=== PATIENT | female | born 1950 | race Caucasian/White ===

== ENCOUNTER → 2024-04-13 10:45 | Outpatient (CLI) | payer MEDICARE, SELFPAY ==
--- NOTE | 2024-04-13 10:50 | DI.CT.S_ITS ---
PROCEDURE: CT LUMBAR SPINE WO CON INDICATIONS: SPINAL STENOSIS,LUMBAR REGION TECHNIQUE: Noncontrast 0.8 mm thick sections acquired from the T12 level to the sacrum. Sagittal and coronal reformats were constructed. For radiation dose reduction, the following was used: automated exposure control. COMPARISON: [facility], MR, MR LUMBAR SPINE WITH/WITHOUT CONTRAST, 11/03/2023, 14:06. [facility], CR, XR LUMBAR SPINE 2 OR 3 VIEWS, 01/05/2024, 14:12. [facility], MR, MR LUMBAR SPINE WITHOUT CONTRAST, 10/29/2020, 19:31. [facility] Outside [facility], MR, MR LUMBAR SPINE WITHOUT CONTRAST, 10/01/2021, 13:08. (Images only, no reports with the a prior outside studies.) FINDINGS: Image quality: Excellent. Bones: No acute vertebral body compression fractures. No suspicious lytic or blastic bony lesions. No pars defects. Mild to moderate dextroconvex scoliotic curvature is seen. Portions of the posterior elements can be seen inferiorly. T12-L1: No significant abnormality is seen. L1-L2: The disc height is well preserved. Moderate disc bulge is seen, which is eccentric to the right. Moderate facet joint hypertrophy is seen. Moderate bilateral neural foraminal narrowing can be seen, right worse than left. Mild central canal narrowing is seen. L2-L3: Mild to moderate loss of disc height is seen. Moderate disc bulge is seen, with a central disc protrusion. Moderate bilateral neural foraminal narrowing is seen. Moderate central canal narrowing is seen. L3-L4: At least moderate loss of disc height is seen on the left. Endplate irregularity and sclerosis can be seen. Vacuum disc phenomenon is seen at this level. Moderate disc bulge is seen, with a central disc protrusion. Mild facet joint hypertrophy is seen. There is moderate right-sided and at least moderate left-sided neural foraminal narrowing. No significant central canal narrowing is seen. L4-L5: At least moderate loss of disc height is seen. Vacuum disc phenomenon is seen at this level. Moderate generalized disc bulge is seen. There is a central disc osteophyte protrusion. Posteriorly projected endplate osteophytes are seen. Moderate facet joint hypertrophy is seen. Moderate to severe bilateral neural foraminal narrowing is seen, right worse than left. No significant central canal narrowing is seen. L5-S1: There is at least moderate loss of disc height seen at this level. Endplate irregularity and sclerosis can be seen. Vacuum disc phenomenon is seen at this level. Posteriorly projected endplate osteophytes are seen. Moderate facet joint hypertrophy is seen. There is at least moderate bilateral neural foraminal narrowing seen. No significant central canal narrowing is seen. Soft tissues: No retroperitoneal masses or hematomas. Visualized aorta is normal in caliber. Colonic diverticulosis is seen, without findings of active diverticulitis. IMPRESSION: Study performed for operative localization. Underlying degenerative changes are seen, which are similar to the recent prior imaging and are worst inferiorly. Yyhu-cu-zzrbwsic dextroconvex lumbar scoliosis. Additional findings: Diverticulosis, without active diverticulitis Dictated by: Dale Baires M.D. on 04/13/2024 at 13:14 Approved by: Dale Baires M.D. on 04/13/2024 at 13:19
== END ==
LOC: CT 10:48
PROVIDERS: Referring Provider Orthopaedic Surgery Orthopaedic Surgery of the Spine; Visit Provider Orthopaedic Surgery Orthopaedic Surgery of the Spine
DX: M48.062 Spinal stenosis, lumbar region with neurogenic claudication (principal); M47.816 Spondylosis without myelopathy or radiculopathy, lumbar region; M47.817 Spondylosis without myelopathy or radiculopathy, lumbosacral region; M41.9 Scoliosis, unspecified; K57.90 Diverticulosis of intestine, part unspecified, without perforation or abscess without bleeding
CPT/HCPCS: 72131

== ENCOUNTER 2024-04-25 09:40 | Inpatient (IN) | payer MEDICARE, SELFPAY ==
[2024-04-19 09:46] VITALS: BMI 39.1
[2024-04-25] VITALS (10 sets, daily range): BP systolic 109–168; BP diastolic 47–88; PULSE 75–101; RESP 9–19; TEMP 36.1–37.2; O2SAT 91–99; BMI 39.1
[2024-04-25] MEDS: LACTATED RINGERS 1,000 ML 42 ML IV ×2 (11:02→13:51)
--- NOTE | 2024-04-25 11:19 | SUR.OPER ---
Prone on spine table, head in foam head support, padded chest and pelvic supports, gel pad at knees, lower legs supported by pillows; nipples, genitalia and toes free of pressure, arms secured on foam padded arm boards at <90 degrees abduction. Tape over blanket at thigh secured to table.
--- NOTE | 2024-04-25 11:20 | PM.PREOP ---
Pre-operative Note Interval Note History & Physical reviewed/Exam performed by Physician: Yes Changes to H&P: No
[2024-04-25] MEDS: CEFAZOLIN 2 GM/100 ML PREMIX 100 ML IV ×3 (11:52→22:14)
[2024-04-25] MEDS: BUPIVACAINE 0.25% (PF) 60 ML, EPINEPHrine 0.15 MG INJ (12:17)
[2024-04-25] MEDS: BUPIVACAINE LIPOSOME 266 MG/20 ML VIAL INJ (12:18)
--- NOTE | 2024-04-25 15:44 | PM.OP.1 ---
Operative Date/Time/Diagnoses Date of procedure: 04/25/24 Time of procedure: 12:15 Pre-op diagnosis: 1. L3-4, L4-5 spinal stenosis with radiculopathy 2. Lumbar scoliosis Post-op diagnosis: same Procedure & Clinicians Procedure: 1. L3-4, L4-5 Postero-lateral and posterior interbody fusion 2. L3-4, L4-5 interbody cage placement. 3. L3-4, L4-5 decompressive laminectomy with bilateral facetecomies 4. L3-4, L4-5 Posterior segmental instrumentation 5. [place] of bone marrow from iliac crest 6. Utilization of microsurgical technique and operating microscope 7. Utilization of robotic assisted navigation Same procedure as scheduled: Yes Indications: Patient has been having chronic back pain and worsening lumbar radiculopathy. Patient was found to have significant lumbar scoliosis foraminal stenosis with correlating symptoms at L3-4 L4-5 level. Patient failed multiple conservative management with worsening pain weakness and numbness in her lower extremity. Patient has been having difficulty performing activity of daily living. After discussing risks benefits of treatment options, patient elected proceed with surgery. Surgeon: Danni Gonzalez Earth Auger Operator: Mabel Liriano Click Yes if Unassisted: No Anesthesia Type: General Operative Notes Closure Type: primary Specimen(s): none sent Prosthetic devices, grafts, tissues, transplants, or devices: Globus CREO MIS screws, Rise cages Applied: catheter Estimated Blood Loss (mL): 100 Blood products transfused: none Procedure in detail: Patient was seen in the preoperative area. Risks and benefits of the surgery was discussed with the patient. Informed consent was obtained from the patient and placed in the chart. Surgical site was marked. Patient was taken to the operative room. General anesthesia was administered. Prophylactic antibiotic was given to the patient less than 30 min before the incision was made. Patient was placed into a prone position on the [place] table. Patient's back was then prepped and draped in the sterile fashion. Time-out was performed at this time. After patient was prepped and draped, patient's PSIS was palpated and marked bilaterally. Small 1 cm incision was made over the PSIS for placement of the reference probes. Two trocar was placed into the PSIS 1 on each side. The reference probe was attached to the trocar of the reference apparatus. At this time the C-arm imaging was used to confirm AP and lateral of L3, L4-L5 vertebrae and merged the C-arm imaging using the [employer] robotic navigation system with the CT of the lumbar spine. After successful merging was completed and confirmed, skin marker was used to christina out the skin incision using the [employer] robotic arm. Bilateral incision was made at this time. Pre templated trajectory was used and guided using the [employer] robotic navigation system for bilateral L3 L4, L5 pedicle screw placement. This was done by using the robotic arm to guide the high-speed bur to make a cortical entry point. Next a drill was placed also using the robotic arm and guided using the navigation system drilling partially through bilateral L3, L4, L5 pedicles. Next L3, L4, L5 pedicle screws it was pre templated and measured was placed onto the power driver service technician and inserted into the pedicles bilaterally. After all 6 screws were placed C-arm imaging was taken of both AP and lateral to confirm the placement. Excellent placement of the screws were confirmed and a matched precisely with the pre planned screw placement using the navigation system. MARs retractor was inserted using Fits.meivation guidence. Globus MARS retractors was placed inside the incision and docked onto the L3, L4 lamina. Using microsurgical technique and operating microscope, a L3, L4 laminectomy and L3-4, L4-5 facetectomy was performed using a Kerrison rongeur. The laminectomy and facetectomy was performed in order to decompress patient's cauda equina as well as the nerve roots exiting at the L3-4, L4-5 level. Patient was found have severe lateral recess and neural foramen stenosis which was fully decompressed after the laminectomy facetectomy. The decompression was significantly more challenging due to the significant white previous laminectomies patient had at both L3-4 L4-5 levels. Significant care was taken to avoid the scar tissue in the midline while proper decompression was performed at both levels. More than 75% of the facets were removed during the process of decompression rendering L3-4, L4-5 level grossly unstable and required a fusion procedure at the same time. The disc space at L3-4, L4-5 was identified, and a total diskectomy was performed at L3-4, L4-5 level. The endplates were decorticated using a rasp and shaver. The total diskectomy and decortication was performed at L3-4, L4-5 level in order to to accomplish a L3-4, L4-5 fusion. The local bone from the laminectomy and facetectomy was saved for local bone grafting. After the total diskectomy and decortication was completed, Viacel bone graft material was combined with local bone that was harvested earlier. At this time, a separate skin is incision was made over the iliac crest on the right. A Jamshidi needle was inserted into the iliac crest through a separate skin incision. 5 cc of bone marrow aspiration was obtained through the separate skin incision using a Jamshidi needle from the iliac crest. The bone marrow aspiration was combined with local bone and the Viacel bone grafting material. The bone grafting material was placed into the L3-4, L4-5 interbody space along with expandable cages. One cage each was inserted into the L3-4 L4-5 interbody space along with bone graft material. The cage was expanded to its maximum height using the torque limiting screwdriver. The disc preparation as well as the cage insertion were also performed under navigation guidance. After the cage was placed, AP and lateral C-arm imaging was taken to confirm placement of the cage and excellent position was confirmed. Globus MARS retractor was inserted and docked onto the L3-4, L4-5 posterolateral gutter on the right side. Using the power drill, posterior-lateral decortication was performed at L3-4, L4-5 level until bleeding cortical bone was identified. The remaining bone grafting material was placed into the L3-4, L4-5 posterior lateral gutter he order to accomplish posterolateral fusion at the L3-4, L4-5 level. At this time the tulips were attached to the L3, L4-L5 pedicle screw shanks. After measuring the length of the rods, they were inserted into the tulips of the pedicle screws and locked in place using locking caps and torque limiting screwdriver bilaterally. Total 6 caps and 2 titanium rods was used in order to complete the posterior instrumentation construct. After all the hardware was placed, and confirmed with AP and lateral C-arm imaging, the wound was then irrigated with sterile normal saline and packed with Ray-Gus gauze for 3 min to accomplish hemostasis. After the gauze was removed the deep fascia was closed with #1 Vicryl suture. The subcutaneous layer was closed with 2-0 Vicryl. The skin was closed with skin rios. Patient tolerated the procedure well. There were no complications. Neuro monitoring system was used to monitor patient's neurologic status throughout entire procedure. There was no disturbance of the neural monitoring signals throughout the case. The Operation could not have been safely performed without compromising the technical result or length of the procedure, without the assistance of a skilled technical support assistant. The technical support assistant was medically necessary for proper positioning, retraction and manipulation of instruments, proper exposure, surgical preparation, and manipulation of tissue. Complications: none Post-operative Condition: stable Disposition: PACU Plan for aftercare: Admit to inpatient hospital
--- NOTE | 2024-04-25 15:47 | DI.RAD.S_ITS ---
PROCEDURE: XR LUMBAR SPINE 2-3V INDICATIONS: L3-4, L4-5 TLIF ROBOT TECHNIQUE: Fluoroscopic guidance utilized for a surgical fusion COMPARISON: None. FINDINGS: Fluoroscopic images submitted for a surgical fusion of the lower lumbar spine. Please see operative note for further discussion. IMPRESSION: Fluoroscopic guidance. Dictated by: Karl White M.D. on 04/25/2024 at 16:38 Approved by: Karl White M.D. on 04/25/2024 at 16:40
[2024-04-25] MEDS: hydrOXYzine 50 MG/ML INJ IM (16:01)
[2024-04-25] MEDS: HYDROMORPHONE 1 MG INJ IV (16:06)
[2024-04-25] MEDS: INSULIN REGULAR 100 UNIT/ML 3 ML VIAL IV (16:30)
[2024-04-25] MEDS: OXYCODONE IR 10 MG TABLET PO ×2 (16:54→22:13)
[2024-04-25] MEDS: LACTATED RINGERS 1,000 ML 125 ML IV (16:57)
[2024-04-25] MEDS: HYDROMORPHONE 0.5 MG INJ IV ×3 (17:53→23:57)
[2024-04-25] MEDS: ALPRAZolam 0.25 MG TABLET PO ×2 (17:53→23:54)
--- NOTE | 2024-04-25 18:21 | PC.NURSE ---
Patient has been given oxycodone 10mg earlier for her back pain and helpful for maybe an hour. She was just recently given some xanax and iv dilaudid and she is much more comfortable after having her back surgery. Dressing to lower back is cdi, Patient is lying on her r.side and tolerating her ivf well. Dressing to back is cdi, with small amount of bloody drainage outlined in black marker.
[2024-04-25] MEDS: SENNOSIDES 8.6 MG TABLET 17.2 MG PO (20:22)
[2024-04-25] MEDS: DOCUSATE 100 MG CAPSULE PO (20:22)
[2024-04-26] MEDS: ONDANSETRON 4 MG/2 ML INJ IV (00:01)
[2024-04-26] MEDS: LACTATED RINGERS 1,000 ML 125 ML IV (00:42)
[2024-04-26] MEDS: OXYCODONE IR 10 MG TABLET PO ×5 (00:58→21:57)
[2024-04-26] MEDS: ACETAMINOPHEN 325 MG TABLET 650 MG PO ×3 (00:59→15:48)
[2024-04-26] MEDS: HYDROMORPHONE 0.5 MG INJ IV ×4 (03:01→22:30)
[2024-04-26 04:00] VITALS: BP 160/74; PULSE 98; RESP 18; TEMP 36.5; O2SAT 96
[2024-04-26 05:52] LABS: Hematocrit 34.8 % (36-46); Hemoglobin 11.6 g/dL (12.0-16.0)
[2024-04-26] MEDS: CEFAZOLIN 2 GM/100 ML PREMIX 100 ML IV (06:46)
[2024-04-26] MEDS: PANTOPRAZOLE DR 20 MG TABLET PO (06:46)
[2024-04-26 08:00] VITALS: BP 145/53; PULSE 78; RESP 18; TEMP 36.7; O2SAT 96
--- NOTE | 2024-04-26 09:20 | PT.IIE ---
Current Diagnoses Spondylolisthesis, lumbar region (04/25/24) Spinal stenosis, lumbar region with neurogenic claudication (04/25/24) Surgery Performed Operation Date: 04/25/24 11:30 Actual Procedures p L3-4, L4-5 TLIF with posterior instrumentation, L5-S1 hemilaminectomy-Robot - Danni Gonzalez MD Surgical History (Last Updated 04/19/24 @ 10:46 by Brooke Wade, RN) H/O bilateral breast reduction surgery H/O cataract extraction H/O: hysterectomy History of lumbar surgery (2021) History of right hip replacement (2021) History of tonsillectomy Medical History (Last Updated 04/19/24 @ 10:46 by Brooke Wade, RN) Anxiety and depression BMI 39.0-39.9,adult (04/19/24) Diabetes HLD (hyperlipidemia) HTN (hypertension) KATELYN on CPAP Spinal stenosis Physical Therapy Inpatient Evaluation/Re-Eval M1 PT/OT-IP Prior Functional Status Start: 04/26/24 12:13 Freq: NEEDED Status: Active Protocol: Document 04/26/24 09:20 AB (Rec: 04/26/24 12:27 AB [id number]) Medical Review Prior Functional Status Medical History Reviewed Yes Communication able to make needs known Mobility and Gait pt stated that she is modified independent with bed mobiltiy , transfers and ambulation using a SPC but limited due to back pain and RLE pain Activities of Daily Living and IADL's per OT note: Pt has hired assist for IADL needs. Pt has difficulty to do her ADL needs . Social History Household Members none Living Arrangements House Number of Floors (Floors) One Floor Number of Stairs To Enter/Railing? Ramp and then a step to enter the house. Home Environment Standard Height Toilet,Walk in Shower,Bidet Home Equipment Front Wheel Walker,Four Wheel Walker,Straight Cane,Bedside Commode,Shower Seat with Backrest,Supervisor Electronic Coils,Grab Bars Near Toilet,Grab Bars In Shower Additional Social History Comment Pt has an adjustable bed. pt stated that she has a caregiver that comes in a few hours a week to help her with groceries and house chores M2 PT-IP Current Condition Start: 04/26/24 12:13 Freq: NEEDED Status: Active Protocol: Document 04/26/24 09:20 AB (Rec: 11/05/24 12:27 [id number]) Physical Therapy Current Condition Current Condition Evaluation Date 04/26/24 Treatment Diagnosis s/p L3-4,L4-5 TLIF; difficulty in walking Onset Date 04/25/24 M3 PT-IP Subjective Start: 04/26/24 12:13 Freq: NEEDED Status: Active Protocol: Document 04/26/24 09:20 AB (Rec: 04/26/24 12:27 [id number]) Subjective Physical Therapy Visit Type Type Initial Evaluation Visit Start Time 09:20 Visit Stop Time 10:00 Number of COMPLAINT SPECIALIST Visits 0 Physical Therapy Visit Comments Patient Comments agreeable to do PT Therapy Pain Assessment Pain When Pain Assessed At Rest Pain Present Pain Present Pain Reported Location back Intensity 9 Scale Used Numeric (0 - 10) Pain Management Techniques Apply Cold,Distraction, Modification of Treatment,Re- positioning,Timing of Activity with Medications M4 PT-IP Mobility and Gait Start: 04/26/24 12:13 Freq: NEEDED Status: Active Protocol: Document 04/26/24 09:20 AB (Rec: 04/26/24 12:27 [id number]) PT-Bed Mobility Assessment Rolling Type of Rolling Log Rolling Level of Assist Moderate Assistance Supine to Sit Supine to Sit Moderate Assistance Scooting Scooting to Edge of Bed Maximum Assistance PT-Transfer Assessment Sit to and From Stand Sit to and from Stand Moderate Assistance,2 Person Assistance,Use of Upper Extremities Equipment Transfer Assistive Device Gait Belt,Front Wheeled Walker Orthotic/Prosthetic Devices or Brace: No Transfers Transfer Destination Chair Transfer Technique ambulated Transfer Ability Level of Assist Minimal Assistance,Moderate Assistance,1 Person Assistance ,Use of Upper Extremities Comments Mobility Comments pt supine in bed and agreeable to do PT. obtained PLOF and home set up. reviewed back precautions with with and log roll bed mobility. BP in supine: 158/63 O2 sat 97% and GA: 89. pt completed bed mobility log roll mod A and cues. able to sit on EOB CGA. c/o increase back pain. max A for scooting to EOB. completed sit to stand mod A x 2 and max cues. pt ambulated in room using FWW ~ 20 ft with initial assist of min but needing mod A towards end of amublation. max A for controlled descent to chair. pt agreed to stay up on the chair. positioned pt on the chair. ice packs provided. call light and table placed within reach. Gait Assessment Gait Gait Assistance Required: Minimum Assistance,Moderate Assistance Distance (Feet) 20 Able to Maintain Weight Bearing Status Yes During Gait Assistive Devices Assistive Device Gait Belt,Front Wheeled Walker Orthotic/Prosthetic Devices or Brace: No Gait Deviations General Gait Pattern Ataxic,Decreased Stride Length ,Decreased Feet Clearance,Step -to Gait Factors Limiting Gait Function Factors Limiting Gait Function Decreased Activity Tolerance, Decreased Sensation,Decreased Strength,Difficulty Following Directions,Limited Range of Motion,Pain,Poor Balance,Poor Safety Awareness PT-Balance Assessment Sitting Balance and Reactions Static Sitting Balance Ability Good Dynamic Sitting Balance Ability Fair Standing Balance and Reactions Static Standing Balance Ability Fair Dynamic Standing Balance Ability Poor Device Used FWW M5 PT-IP Objective Assessments Start: 04/26/24 12:13 Freq: NEEDED Status: Active Protocol: Document 04/26/24 09:20 AB (Rec: 04/26/24 12:27 AB [id number]) Orientation Orientation/Cognition Level of Alertness Alert Orientation Name,Place,Situation Language Function Ability Hard of Hearing Safety Awareness Decreased Safety Awareness Memory Description Short Term Impaired Gross Range of Motion Lower Extremity ROM Assessment Within Functional Limits Strength Lower Extremity Strength Assessment Right Impaired Hip 3-/5 Knee 3+/5 Coordination Assessment Gross Coordination Gross Coordination WNL Sensation Assessment Sensation Gross Sensation Left LE Impaired Sensation Description Numbness Comments Sensation Comments slight numbness on L toes per pt Muscle Tone Muscle Tone WNL Yes M6 PT-IP Treatment Start: 04/26/24 12:13 Freq: NEEDED Status: Active Protocol: Document 04/26/24 09:20 AB (Rec: 04/26/24 12:27 AB [id number]) Physical Therapy Treatment Education Education Provided Precautions,Weight Bearing Status,Post-Op Packet,Safety M7 PT-IP Assessment and Plan Start: 04/26/24 12:13 Freq: NEEDED Status: Active Protocol: Document 04/26/24 09:20 AB (Rec: 04/26/24 12:27 AB [id number]) PT Summary Assessment and Plan Potential Rehabilitation Potential Fair Status of Condition at Evaluation Evolving Summary Impairments Pain,ROM,Strength,Balance, Coordination,Sensation,Tone, Cognition,Bed Mobility, Transfers,Gait,Activity Tolerance Assessment Summary pt is a 73 y/o F s/p L3-4, L4- 5 TLIF POD 1. pt has back precautions. pt requiring mod A for bed mobility and mod A x 2 for sit to stand. pt requiring min to mod A for ambulation using FWW but only tolerated ~ 20 ft of walking with c/o increase back pain. pt lives alone and will not have any assistance at home. pt will require SNF rehab to improve overall strength and mobility independence. Goals Bed Mobility Goal Independent Transfer Goal Independent,Front Wheeled Walker Gait Goal Independent,Front Wheel Walker Gait Distance 200 Days to Meet Goals 5 Frequency of Treatment Frequency Of Treatment Twice a Day Treatment Plan Physical Therapy Treatment Plan Bed Mobility Training,Transfer Training,Gait Training, Therapeutic Exercise,Balance Retraining,Post Op Education, Discharge Planning,Hot or Cold Pack,Neuromuscular Re-ed, Coordination Retraining,Manual Therapy Precautions Lumbar Precautions Log Roll,No Twisting,Limit Bending,Lifting Restriction of 10 lbs,Gait Belt above Incisional Area Recommendations To Nursing Amount of Assist Needed 2 Person Assist Discharge Recommendations PT Discharge Recommendations SNF Rehab Transportation Needs at Discharge Wheelchair/Cabulance
--- NOTE | 2024-04-26 10:00 | OT.IP.EVAL ---
Current Diagnoses Spondylolisthesis, lumbar region (04/25/24) Spinal stenosis, lumbar region with neurogenic claudication (04/25/24) Surgery Performed Operation Date: 04/25/24 11:30 Actual Procedures p L3-4, L4-5 TLIF with posterior instrumentation, L5-S1 hemilaminectomy-Robot - Danni Gonzalez MD Past Medical History (Last Updated 04/19/24 @ 10:46 by Brooke Wade, RN) Anxiety and depression BMI 39.0-39.9,adult (04/19/24) Diabetes HLD (hyperlipidemia) HTN (hypertension) KATELYN on CPAP Spinal stenosis Surgical History (Last Updated 04/19/24 @ 10:46 by Brooke Wade, RN) H/O bilateral breast reduction surgery H/O cataract extraction H/O: hysterectomy History of lumbar surgery (2021) History of right hip replacement (2021) History of tonsillectomy Occupational Therapy Inpatient Evaluation/Re-Eval M1 PT/OT-IP Prior Functional Status Start: 04/26/24 10:40 Freq: NEEDED Status: Active Protocol: Document 04/26/24 09:05 [facility] (Rec: 04/26/24 11:45 [facility] [id number]) Medical Review Prior Functional Status Communication I Mobility and Gait Pt able to use a SPC. Pt mainly just stays at home. Activities of Daily Living and IADL's Pt has hired assist for IADL needs. Pt has difficulty to do her ADL needs. Social History Household Members none Living Arrangements House Number of Floors (Floors) One Floor Number of Stairs To Enter/Railing? Ramp and then a step to enter the house. Home Environment Standard Height Toilet,Walk in Shower,Bidet Home Equipment Front Wheel Walker,Four Wheel Walker,Straight Cane,Bedside Commode,Shower Seat with Backrest,Wraparound Facilitator,Grab Bars Near Toilet,Grab Bars In Shower Additional Social History Comment Pt has an adjustable bed. M2 OT-IP Current Condition Start: 04/26/24 10:40 Freq: Status: Active Protocol: Document 04/26/24 09:05 [facility] (Rec: 04/26/24 11:45 [facility] [id number]) Occupational Therapy Current Condition Current Condition Evaluation Date 04/26/24 Treatment Diagnosis S/P L3-4, L4-5 TLIF Diagnosis Onset Date 04/25/24 Post Operative Precautions Lumbar Precautions Log Roll,No Twisting,Limit Bending,Lifting Restriction of 10 lbs,Gait Belt above Incisional Area M3 OT- IP Subjective and Pain Start: 04/26/24 10:40 Freq: Status: Active Protocol: Document 04/26/24 09:05 [facility] (Rec: 04/26/24 11:45 [facility] [id number]) OT- Subjective Occupational Therapy Visit Type Type Initial Evaluation Visit Start Time 09:05 Visit Stop Time 10:00 Occupational Therapy Visit Comments Patient Comments Pt agreed to get up. Patient/Caregiver Goals TO go to skilled rehab. OT Pain Assessment Pain When Pain Assessed During Mobility Pain Present Pain Present Pain Reported Location back Intensity 9 Scale Used Numeric (0 - 10) M4 OT- IP ADL's Start: 04/26/24 10:40 Freq: Status: Active Protocol: Document 04/26/24 09:05 [facility] (Rec: 04/26/24 11:45 [facility] [id number]) OT [id number] General Evaluation Self-Feeding Ability Independent OT ADL-Grooming Comments OT Grooming Comments Pt not wanting to do at this time. OT ADL-Oral Care Comments Oral Care Comments Educated best to spit into a cup or hinge at her hips to best follow her back precautions. OT ADL-Dressing General Eval Lower Body Dressing Ability Maximum Assistance Areas Needing Assistance Socks OT ADL-Toileting General Evaluation Toileting Ability Total Assistance Areas Needing Assistance Empty Catheter or Colostomy Comments OT Toileting Comments Christianson in place. OT ADL-Bathing Comments OT Bathing Comments Pt will need at least assist to help cover the dressing during showering needs. M5 OT- IP IADL's Start: 04/26/24 10:40 Freq: Status: Active Protocol: Document 04/26/24 09:05 [facility] (Rec: 04/26/24 11:45 [facility] [id number]) OT-Instrumental Activities of Daily Living Deficits IADL Deficits Identified Deficits Home Safety Awareness Awareness of Need for Assistance at Home Good Awareness Ability to Problem Solve Emergency Able to Problem Solve Situations Medication Management Medication Management No Deficits Identified Money Management Money Management No Deficits Identified Meal Preparation Meal Preparation Comments Pt will need assist. Chili Maker Chili Maker Caregiver Provides Assist M6 OT- IP Functional Cognition Start: 04/26/24 10:40 Freq: Status: Active Protocol: Document 04/26/24 09:05 [facility] (Rec: 04/26/24 11:45 [facility] [id number]) Cognitive Factors Limiting Selfcare Function Cognitive Ability Level of Alertness Alert Patient Orientation Name,Place,Situation Attention Span Ability Capable of Focused Attention, Capable of Sustained Attention Ability to Follow Commands Able to Follow One Step Commands Cognitive Comments Cognitive Assessment Comments Pt able to follow commands for ADL and mobility needs. Pt needing reassurance and encouragement as in lots of pain. OT- Vision and Hearing OT- Hearing Assessment OT- Hearing Assessment WFL OT- Vision Assessment Visual Attentiveness WFL Occular Pursuits WFL Vision Assessment Comments Pt wears glasses to watch TV. M7 OT- IP Mobility and Balance Start: 04/26/24 10:40 Freq: Status: Active Protocol: Document 04/26/24 09:05 [facility] (Rec: 04/26/24 11:45 [facility] [id number]) OT- Bed Mobility Assessment Supine to Sit Supine to Sit Assist Moderate Assistance Scooting Scooting to Edge of Bed Moderate Assistance OT-Transfer Assessment Sit to and From Stand Sit to and from Stand Moderate Assistance,2 Person Assistance Transfers Transfer Ability Minimal Assistance,Moderate Assistance,1 Person Assistance Technique Transfer Destination Bed,Chair Devices Transfer Assistive Devices Gait Belt,Front Wheeled Walker Comments Mobility Comments MODA to assist to get her trunk upright and to scoot to the edge of the bed. MODA X 2 to stand to the FWW and MIN to MODA with FWW and to help with her hand placement and lower her down to the recliner . CAll light places next to pt and ice bag given for her back. OT- Balance Assessment Sitting Balance and Reactions Static Sitting Balance Ability Good Dynamic Sitting Balance Ability Fair Standing Balance and Reactions Static Standing Balance Ability Fair Dynamic Standing Balance Ability Poor M8 OT- IP Objective Assessments Start: 04/26/24 10:40 Freq: Status: Active Protocol: Document 04/26/24 09:05 [facility] (Rec: 04/26/24 11:45 [facility] [id number]) OT Gross Range of Motion Upper Extremity Range of Motion Assessment Within Functional Limits M9 OT- IP Assessment and Plan Start: 04/26/24 10:40 Freq: Status: Active Protocol: Document 04/26/24 09:05 [facility] (Rec: 04/26/24 11:45 [facility] [id number]) OT Summary Assessment and Plan Potential Rehabilitation Potential Good Analytic Complexity at Evaluation Low Summary OT Impairments Pain,Strength,Balance, Functional Mobility,Grooming, Dressing,Toileting,Bathing, Toilet Transfers,Shower Transfers,Activity Tolerance Progress Towards Goals Progressing Toward Goals,Slow Progress due to Pain Assessment Summary Pt low complexity and main barriers are pain, decreased activity tolerance, and needing two person to come to stand at this time. Pt looking to go to skilled rehab when medically stable. Goals Grooming Goal Independent Dressing Goal Independent Toileting Goal Independent Bathing Goal Standby Assistance Toilet Transfer Goal Independent Shower Transfer Goal Standby Assistance Days to Meet Goals 10 Frequency of Treatment Other frequency 5x/week Treatment Plan OT Treatment Plan ADL Training,Functional Mobility,Patient/Family Education,Discharge Planning Discharge Recommendations OT Discharge Recommendations SNF Rehab Home Equipment Needs LB dressing equipment Transportation Needs at Discharge Wheelchair/Cabulance
--- NOTE | 2024-04-26 10:35 | PM.PNPO.1 ---
Subjective Subjective Date Patient Seen: 04/26/24 Time Patient Seen: 10:35 Interval history: Pain has been severe. Denies nausea or vomiting. No fever chills. No shortness of breath or chest pain. Patient does not have assistance at home. Exam Vital Signs (past 8 hours): - 04/26/24 04:00 04/26/24 08:00 Temperature 97.7 F 98.0 F Pulse Rate 98 H 78 Respiratory Rate 18 18 Blood Pressure 160/74 H 145/53 H Pulse Oximetry 96 96 Oxygen Flow Rate 0 0 Fraction of Inspired Oxygen 28 SaO2/FiO2 Ratio 339 Oxygen Delivery Method Nasal Cannula Oxygen Flow Rate 0 Narrative Exam Narrative: 73-year-old female sitting comfortably in bedside chair in no apparent distress. Motor functions intact bilateral lower extremities. Sensation grossly intact to light touch bilateral lower extremities. Const General: cooperative and comfortable Nutritional Appearance: obese (BMI 39.1) Orientation: alert Resp Effort & Inspection: normal respiratory effort and able to speak in complete sentences Objective Labs 04/26/24 05:40 Labs: Laboratory Results - last 24 hr 04/26/24 05:40 Hgb 11.6 L Hct 34.8 L PFSH Medical History (Updated 04/19/24 @ 10:46 by Brooke Wade RN) BMI 39.0-39.9,adult (04/19/24) KATELYN on CPAP HTN (hypertension) Spinal stenosis HLD (hyperlipidemia) Diabetes Anxiety and depression Surgical History (Updated 04/19/24 @ 10:46 by Brooke Wade RN) History of lumbar surgery (2021) History of tonsillectomy H/O bilateral breast reduction surgery History of right hip replacement (2021) H/O cataract extraction H/O: hysterectomy Social History household members: none Smoking Status: Never smoker alcohol intake: current Assessment & Plan Post-op Postoperative Procedures: Procedures Operation Date: 04/25/24 11:30 Actual Procedure Side Surgeon p L3-4, L4-5 TLIF with posterior instrumentation, L5-S1 hemilaminectomy-Robot Danni Gonzalez MD Postoperative day: 1 Postoperative status: marginal pain control Postoperative status narrative: Stable Postoperative plan: routine post-op care Postoperative plan narrative: Multimodal pain management Mobilize with physical therapy, limit bending, twisting, lifting Disposition likely retirement facility
[2024-04-26 11:08] VITALS: BP 135/59
[2024-04-26] MEDS: ATORVASTATIN 20 MG TABLET 40 MG PO (11:08)
[2024-04-26] MEDS: DOCUSATE 100 MG CAPSULE PO ×2 (11:08→21:57)
[2024-04-26] MEDS: LOSARTAN 50 MG TABLET 100 MG PO (11:08)
[2024-04-26] MEDS: ALPRAZolam 0.25 MG TABLET PO ×2 (13:01→22:04)
--- NOTE | 2024-04-26 13:42 | CM.DANOTE ---
Initial DCP Assessment Visit Note Reviewed EMR and team rounds for status updates. Met with pt at bedside to introduce self and role, pt was found to be sitting upright in her recliner, expressing I had no idea this surgery was going to hurt so much! and was very tearful. Pt lives alone modified independent in her own home in [place]. She has a cg that comes a few times a week to help her with shopping and home chores, and has several friends locally that can help her once she is d/c'd from SNF rehab. She prefers a referral be sent to [facility] ([place]). Faxed referral and clinicals for review. Payor: Medicare Attending: Dr. Gonzalez Pt is a 73 year-old F post-op day 1 from a TLIF surgery. Pt has a hx of worsening and debilitating back pain in her lumbar spine and hips. Conservative efforts have not provided lasting relief. She has started working with PT/OT today, plan is SNF after 3-midnights, she will be eligible for d/c 04/28. DCP will continue to monitor closely for SNF acceptance and assist with her transition of care at d/c. Discharge Planning/Care Management CM Discharge Assessment Start: 04/26/24 13:38 Freq: Status: Active Protocol: Document 04/26/24 13:38 [facility] (Rec: 04/26/24 13:42 [facility] [id number]) Discharge Planning Assessment Assigned Bottle Line Worker DANI Moore Advance Directives? No History Provided By Patient,Medical Record Has Patient been admitted in last 30 No days? Prior Living Arrangements House Household Members none Type of transporation used prior to Drives own vehicle admit Independent with ADL's No: modified independent with a cane Needs Assistance With Home Chores / Shopping DME Already Rented / Owned Bath Bench,Elevated Toilet Seat,FWW / Walker,Cane,Bedside Commode Comment 4WW Patient/Family Preference Longterm Facility Barriers to Discharge No Discharge Plan Longterm Facility Community Services Physical Therapy,Occupational Therapy Transportation Arrangement Facility Referrals Initiated Longterm If patient plan is SNF: Has PASSR been No completed? Medicare Choice List Provided Yes Medicare choice list reviewed on patient electronic tablet with Has Agency SNF been contacted Yes Whiteboard Updated in Patient Room with Yes name and ext. # of Bottle Line Worker Review Status In Process Please Provide Date Initial DC 04/26/24 Assessment Was Performed Pre-Anesthesia Assessment Start: 04/19/24 09:46 Freq: Status: Active Protocol: Document 04/19/24 09:46 [facility] (Rec: 04/19/24 10:33 [facility] [id number]) Pre-Anesthesia Assessment PAC Comment 04/19/24 Phone assessment. Patient Information Reviewed Via Phone Assessment Assessment Completed With Patient Diagnostic Results BMP/CMP,CBC,EKG,Other Comment 04/05/24 outside results. Primary Care Provider Tyron Floyd Seen Specialist in Last 12 Months Yes Specialist Seen Orthopedist Primary Language Djiboutian Preferred Language Djib[place]ian Manager Speech Required No Height 165.1 cm Weight 106.594 kg Body Mass Index (BMI) 39.1 Hearing Ability Normal Visual Assist Glasses Dentition Type Teeth, Natural Present Barriers to Learning None Comment For TV viewing. Hx Anesthesia Reactions Yes: I was freezing Hx Family Anesthesia Reaction No Hx Malignant Hyperthermia No Hx Blood Transfusions No Anesthesia Review Requested No Bill Distributor No alcohol intake current alcohol intake frequency holidays/special occasions only Smoking Status Never smoker Substance Use Type does not use Pain Present Pain Reported Comment Lower back, R>L Musculoskeletal Symptoms Back Pain,Difficulty Walking, Radiating Pain into Limb History of Falling (Recent or History of No ) Patient is completely paralyzed or No completely immobile Prosthesis or Orthotic Device Cane Mental Status Oriented to own ability Comment Will bring walker. Is patient on oxygen? No Does patient have MIMS/SOB Yes: MIMS. Hx Sleep Apnea Yes CPAP/BIPAP use prescribed and used routinely Will Bring CPAP/BIPAP DOS Yes Currently Taking a Beta Yudi No Can You Climb a Flight of Stairs Without No SOB Hx Chest Pain No Hx SOB No Hx Syncope or Dizziness Yes: Occasional dizziness from medications Anti-Coagulant Therapy No Cardiac Testing No Hx Pacemaker/ICD No Cardiac Clearance Received Not Applicable Dysphagia No Gastrointestinal Symptoms Reflux Bladder Pattern Nocturia Urinary Catheter Present No Hx Urinary Self Catheterization No Diabetes Yes HgbA1C 6.1 Date 04/05/24 Patient No Lactating No Hx Drug Resistant Organism No Presence of External or Internal Medical Yes: Bilat IOL, right hip. Devices Have you had any close contact with No someone diagnosed with COVID-19? Are you experiencing any of these No symptoms symptoms? Received a COVID vaccine? Yes Lives With none Current Living Arrangements House Number of Floors (Floors) One Floor Number of Stairs To Enter/Railing? one step without railing to enter. Support System None Does the Patient Have Assistance After No Surgery Additional comment Advised 3 night LOS. Feels Safe in Current Environment Yes Do you have a plan to hurt yourself or No Plan others? Do You Have Any Spiritual Beliefs That No May Affect Your HC Choices? Do You Have Any Cultural Practices That No May Affect Your HC Choices? Who Can We Speak to About Patient's Care Friends/family Identifying Code for Release of Patient Declines to issue Information Emergency Contact Name Steffanie Vazquez - friend Emergency Contact Advance Directives? No PAC Instructions Assistance for 24 hours post- op,Bring CPAP/BIPAP,Diabetes instructions,Durable medical equipment,Medications to take/ avoid,Nasal antibiotic,No ETOH /petroleum product on skin DOS ,NPO,Post-op transportation, Pre-surgical wash,Sensory aids ,Sturdy shoes/comfortable clothes,Do not bring valuables and remove jewelry
--- NOTE | 2024-04-26 16:09 | PC.NURSE ---
Patient tearful, anxious and states she can no longer tolerate this level of pain. Patient states she feels like she is having a cramp in her back and into her right leg. Declined to work with PT this afternoon due to her high pain level at the time. Patient has been medicated with prn dilaudid, oxycodone, tylenol, and xanax (see MAR) for times. She states these are not giving her adequate relief from her anxiety and pain. Message was left with Darell Marcelo, and with SNO with Dr. Gonzalez's phlebotomy lab assistant Ami, and have been waiting for return phone call. This RN and IT MANAGER have been assisting patient to reposition in bed, providing ice packs prn, warm blankets, and verbal re assurance. Will continue to monitor.
--- NOTE | 2024-04-26 16:31 | PT-IP ANOTE ---
checked on pt x 2 but refused PT. c/o increase pain and nurse in room with pt. will f/u next tx session.
[2024-04-26] MEDS: MONTELUKAST 10 MG TABLET PO (17:26)
[2024-04-26] MEDS: diazePAM 5 MG TABLET PO ×2 (17:26→23:36)
[2024-04-26] MEDS: SENNOSIDES 8.6 MG TABLET 17.2 MG PO (21:56)
[2024-04-26] MEDS: ONDANSETRON 4 MG ODT SL (21:57)
[2024-04-26 22:05] VITALS: BP 189/73; PULSE 94; TEMP 36.8; O2SAT 95
[2024-04-26] MEDS: TRAZODONE 50 MG TABLET 100 MG PO (23:36)
[2024-04-26] MEDS: TRAMADOL 50 MG TABLET PO (23:36)
[2024-04-27] VITALS: BP 161/72; PULSE 82; RESP 18; TEMP 36.7; O2SAT 96
[2024-04-27] MEDS: OXYCODONE IR 10 MG TABLET PO ×5 (01:46→21:15)
[2024-04-27] MEDS: HYDROMORPHONE 0.5 MG INJ IV ×2 (02:19→04:23)
[2024-04-27] MEDS: ONDANSETRON 4 MG ODT SL (02:19)
--- NOTE | 2024-04-27 06:27 | PM.PNPO.1 ---
Subjective Subjective Date Patient Seen: 04/27/24 Time Patient Seen: 06:45 Interval history: iLdia is lying in bed, says she is in a lot of pain, in her back and in her legs. Says she has not done much work w/ PT d/t pain. In review of MAR, she has been getting IV hydromorphone quite frequently, she is also on 2 benzodiazepines plus trazadone. No muscle relaxers or steroids. She was ordered SSI but denies h/o insulin; fingersticks have been < 200 since admission. Exam Vital Signs (past 8 hours): - 04/27/24 00:00 Temperature 98.1 F Pulse Rate 82 Respiratory Rate 18 Blood Pressure 161/72 H Pulse Oximetry 96 Oxygen Flow Rate 0 Fraction of Inspired Oxygen 28 SaO2/FiO2 Ratio 339 Oxygen Delivery Method Room Air Oxygen Flow Rate 0 Narrative Exam Narrative: 4/5 hip flexors, quadriceps, hamstrings; 5/5 PF, DF, EHL bilaterally. Sensation to light touch intact throughout BLE, calves soft and compressible. Unable to check low back dressings d/t pain. Christianson still in draining clear, yellow urine. Objective Labs 04/26/24 05:40 PFS Medical History (Updated 04/19/24 @ 10:46 by Brooke Wade RN) BMI 39.0-39.9,adult (04/19/24) KATELYN on CPAP HTN (hypertension) Spinal stenosis HLD (hyperlipidemia) Diabetes Anxiety and depression Surgical History (Updated 04/27/24 @ 06:27 by Mabel Liriano PA-C) History of lumbar surgery (2021) History of tonsillectomy H/O bilateral breast reduction surgery History of right hip replacement (2021) H/O cataract extraction H/O: hysterectomy Social History household members: none Smoking Status: Never smoker alcohol intake: current Assessment & Plan Post-op Assessment and plan (1) S/P lumbar fusion: Assessment and Plan narrative: 1) Per CM note, pt will be SNF-eligible tomorrow, 04/28. 2) Will d/c hydromorphone, diazepam, tramadol, and Christianson in the hopes of streamlining her medication for discharge. 3) Will add methocarbamol and dexamethasone. If this combination helps with pain, she can be discharged wtih methocarbamol and a Medrol Shravan. 4) Continue SCDs for mechanical VTE prophylaxis. Continue PT. Postoperative Procedures: Procedures Operation Date: 04/25/24 11:30 Actual Procedure Side Surgeon p L3-4, L4-5 TLIF with posterior instrumentation, L5-S1 hemilaminectomy-Robot Danni Gonzalez MD Postoperative day: 2
[2024-04-27 08:00] VITALS: BP 144/65; PULSE 86; RESP 15; TEMP 36.6; O2SAT 92
[2024-04-27] MEDS: DEXAMETHASONE 4 MG/ML VIAL IV ×3 (08:36→18:37)
[2024-04-27] MEDS: methocarbamoL 500 MG TABLET PO ×2 (08:36→20:25)
[2024-04-27] MEDS: ATORVASTATIN 20 MG TABLET 40 MG PO (08:36)
[2024-04-27] MEDS: DOCUSATE 100 MG CAPSULE PO ×2 (08:36→20:24)
[2024-04-27] MEDS: PANTOPRAZOLE DR 20 MG TABLET PO (08:36)
[2024-04-27] MEDS: LOSARTAN 50 MG TABLET 100 MG PO (08:36)
--- NOTE | 2024-04-27 10:36 | PT.IPTN ---
Current Diagnoses Spondylolisthesis, lumbar region (04/25/24) Spinal stenosis, lumbar region with neurogenic claudication (04/25/24) Arthrodesis status (04/25/24) Surgery Performed Operation Date: 04/25/24 11:30 Actual Procedures p L3-4, L4-5 TLIF with posterior instrumentation, L5-S1 hemilaminectomy-Robot - Danni Gonzalez MD Physical Therapy Treatment Note M2 PT-IP Current Condition Start: 04/26/24 12:13 Freq: NEEDED Status: Active Protocol: Document 04/26/24 09:20 AB (Rec: 04/26/24 12:27 AB [id number]) Physical Therapy Current Condition Current Condition Evaluation Date 04/26/24 Treatment Diagnosis s/p L3-4,L4-5 TLIF; difficulty in walking Onset Date 04/25/24 M3 PT-IP Subjective Start: 04/26/24 12:13 Freq: NEEDED Status: Active Protocol: Document 04/27/24 11:05 TS (Rec: 04/27/24 11:31 TS [id number]) Subjective Physical Therapy Visit Type Type Treatment Note Visit Start Time 10:36 Visit Stop Time 11:25 Number of LIVESTOCK FARMWORKER Visits 1 Physical Therapy Visit Comments Patient Comments Pt is somewhat lathargic, reports high pain, she is agreeable to PT. Therapy Pain Assessment Pain When Pain Assessed At Rest Pain Present Pain Present Pain Reported M4 PT-IP Mobility and Gait Start: 04/26/24 12:13 Freq: NEEDED Status: Active Protocol: Document 04/27/24 11:05 TS (Rec: 04/27/24 11:31 TS [id number]) PT-Bed Mobility Assessment Rolling Type of Rolling Log Rolling Level of Assist Maximal Assistance,1 Person Assistance Supine to Sit Supine to Sit Maximum Assistance,1 Person Assistance Sit to Supine Sit to Supine Moderate Assistance,2 Person Assistance Scooting Scooting to Edge of Bed Maximum Assistance PT-Transfer Assessment Sit to and From Stand Sit to and from Stand Moderate Assistance,1 Person Assistance,Use of Upper Extremities Equipment Transfer Assistive Device Gait Belt,Front Wheeled Walker Orthotic/Prosthetic Devices or Brace: No Transfers Transfer Destination Bedside Commode Transfer Technique ambulated Transfer Ability Level of Assist Minimal Assistance,1 Person Assistance,Use of Upper Extremities Comments Mobility Comments Pt recalls 0/3 spinal precautions, education is provided. Logroll to L side MaxA with cues for handrail assist. Supine to sit MaxA for uprighting trunk, cues for LE 's over EOB. She scoots to EOB MaxA with use of bed sheet to pull forward. She requests to use commode. STS with FWW ModA. She ambulates ~10' to the commode CGA with FWW. After commode pt ambulates back to the bed. Sit to supine into bed MaxA with max cues. Pt was left in the bed, all needs met. Gait Assessment Gait Gait Assistance Required: Minimum Assistance,1 Person Assist Distance (Feet) 20 Assistive Devices Assistive Device Gait Belt,Front Wheeled Walker Orthotic/Prosthetic Devices or Brace: No Gait Deviations General Gait Pattern Ataxic,Decreased Stride Length ,Decreased Feet Clearance,Step -to Gait Factors Limiting Gait Function Factors Limiting Gait Function Decreased Activity Tolerance, Decreased Sensation,Decreased Strength,Difficulty Following Directions,Limited Range of Motion,Pain,Poor Balance,Poor Safety Awareness PT-Balance Assessment Sitting Balance and Reactions Static Sitting Balance Ability Good Dynamic Sitting Balance Ability Fair Standing Balance and Reactions Static Standing Balance Ability Fair Dynamic Standing Balance Ability Poor Device Used FWW M5 PT-IP Objective Assessments Start: 04/26/24 12:13 Freq: NEEDED Status: Active Protocol: Document 04/26/24 09:20 AB (Rec: 04/26/24 12:27 AB [id number]) Orientation Orientation/Cognition Level of Alertness Alert Orientation Name,Place,Situation Language Function Ability Hard of Hearing Safety Awareness Decreased Safety Awareness Memory Description Short Term Impaired Gross Range of Motion Lower Extremity ROM Assessment Within Functional Limits Strength Lower Extremity Strength Assessment Right Impaired Hip 3-/5 Knee 3+/5 Coordination Assessment Gross Coordination Gross Coordination WNL Sensation Assessment Sensation Gross Sensation Left LE Impaired Sensation Description Numbness Comments Sensation Comments slight numbness on L toes per pt Muscle Tone Muscle Tone WNL Yes M6 PT-IP Treatment Start: 04/26/24 12:13 Freq: NEEDED Status: Active Protocol: Document 04/27/24 11:05 TS (Rec: 04/27/24 11:31 TS [id number]) Physical Therapy Treatment Education Education Provided Precautions,Weight Bearing Status,Post-Op Packet,Safety M7 PT-IP Assessment and Plan Start: 04/26/24 12:13 Freq: NEEDED Status: Active Protocol: Document 04/27/24 11:05 TS (Rec: 04/27/24 11:31 TS [id number]) PT Summary Assessment and Plan Potential Rehabilitation Potential Fair Summary Impairments Pain,ROM,Strength,Balance, Coordination,Sensation,Tone, Cognition,Bed Mobility, Transfers,Gait,Activity Tolerance Progress Towards Goals Slow Progress due to Pain,Slow Progress due to Activity Tolerance Assessment Summary Lidia is making slow progress with her mobility. She continues to require MaxA for bed mobility with max cues. She continues to ambulate short distances in the room, required decreased assist to Abril. Her pain remains high with all mobility. PT continues to recommend SNF. Goals Bed Mobility Goal Independent Transfer Goal Independent,Front Wheeled Walker Gait Goal Independent,Front Wheel Walker Gait Distance 200 Days to Meet Goals 5 Frequency of Treatment Frequency Of Treatment Twice a Day Treatment Plan Physical Therapy Treatment Plan Bed Mobility Training,Transfer Training,Gait Training, Therapeutic Exercise,Balance Retraining,Post Op Education, Discharge Planning,Hot or Cold Pack,Neuromuscular Re-ed, Coordination Retraining,Manual Therapy Precautions Lumbar Precautions Log Roll,No Twisting,Limit Bending,Lifting Restriction of 10 lbs,Gait Belt above Incisional Area Recommendations To Nursing Amount of Assist Needed 2 Person Assist Discharge Recommendations PT Discharge Recommendations SNF Rehab Transportation Needs at Discharge Wheelchair/Cabulance
--- NOTE | 2024-04-27 11:25 | OT.IP.TRT ---
Current Diagnoses Spondylolisthesis, lumbar region (04/25/24) Spinal stenosis, lumbar region with neurogenic claudication (04/25/24) Arthrodesis status (04/25/24) Surgery Performed Operation Date: 04/25/24 11:30 Actual Procedures p L3-4, L4-5 TLIF with posterior instrumentation, L5-S1 hemilaminectomy-Robot - Danni Gonzalez MD Occupational Therapy Treatment Note M2 OT-IP Current Condition Start: 04/26/24 10:40 Freq: Status: Active Protocol: Document 04/26/24 09:05 [facility] (Rec: 04/26/24 11:45 [facility] [id number]) Occupational Therapy Current Condition Current Condition Evaluation Date 04/26/24 Treatment Diagnosis S/P L3-4, L4-5 TLIF Diagnosis Onset Date 04/25/24 Post Operative Precautions Lumbar Precautions Log Roll,No Twisting,Limit Bending,Lifting Restriction of 10 lbs,Gait Belt above Incisional Area M3 OT- IP Subjective and Pain Start: 04/26/24 10:40 Freq: Status: Active Protocol: Document 04/27/24 11:25 [facility] (Rec: 04/27/24 11:40 [facility] [id number]) OT- Subjective Occupational Therapy Visit Type Type Treatment Note Visit Start Time 11:02 Visit Stop Time 11:25 Occupational Therapy Visit Comments Patient Comments Pt sitting on the BSC when OT came in to see her. Patient/Caregiver Goals TO go to skilled rehab. OT Pain Assessment Pain When Pain Assessed During Mobility Pain Present Pain Present Pain Reported Location back Intensity 6 Scale Used Numeric (0 - 10) M4 OT- IP ADL's Start: 04/26/24 10:40 Freq: Status: Active Protocol: Document 04/27/24 11:25 [facility] (Rec: 04/27/24 11:40 [facility] [id number]) OT [id number] General Evaluation Self-Feeding Ability Independent OT ADL-Grooming General Evaluation Grooming Ability Minimal Assistance Areas Needing Assistance Retrieving/Set-up of Grooming Items Comments OT Grooming Comments While seated. Assist to help get the snarls out of her hair . OT ADL-Oral Care General Eval Oral Care Ability Independent Comments Oral Care Comments While seated. OT ADL-Toileting General Evaluation Toileting Ability Total Assistance Comments OT Toileting Comments Christianson in place. Pt attempted to have a bowel movement and with no success. OT ADL-Bathing Comments OT Bathing Comments Not performed. M5 OT- IP IADL's Start: 04/26/24 10:40 Freq: Status: Active Protocol: Document 04/26/24 09:05 [facility] (Rec: 04/26/24 11:45 [facility] [id number]) OT-Instrumental Activities of Daily Living Deficits IADL Deficits Identified Deficits Home Safety Awareness Awareness of Need for Assistance at Home Good Awareness Ability to Problem Solve Emergency Able to Problem Solve Situations Medication Management Medication Management No Deficits Identified Money Management Money Management No Deficits Identified Meal Preparation Meal Preparation Comments Pt will need assist. Automatic Screwmaker Automatic Screwmaker Caregiver Provides Assist M6 OT- IP Functional Cognition Start: 04/26/24 10:40 Freq: Status: Active Protocol: Document 04/27/24 11:25 [facility] (Rec: 04/27/24 11:40 [facility] [id number]) Cognitive Factors Limiting Selfcare Function Cognitive Ability Level of Alertness Alert,Confusional State Patient Orientation Name,Place,Situation Attention Span Ability Capable of Focused Attention, Capable of Sustained Attention Ability to Follow Commands Able to Follow One Step Commands with Increased Time, Able to Follow One Step Commands with Repetition Cognitive Comments Cognitive Assessment Comments Pt needing cues to follow commands and states her back precautions. Pt very drowsy. M7 OT- IP Mobility and Balance Start: 04/26/24 10:40 Freq: Status: Active Protocol: Document 04/27/24 11:25 [facility] (Rec: 04/27/24 11:40 [facility] [id number]) OT- Bed Mobility Assessment Sit to Supine Sit to Supine Assist Moderate Assistance,2 Person Assistance OT-Transfer Assessment Sit to and From Stand Sit to and from Stand Moderate Assistance,1 Person Assistance,2 Person Assistance Transfers Transfer Ability Minimal Assistance,1 Person Assistance Technique Transfer Destination Bed,Bedside Commode Devices Transfer Assistive Devices Gait Belt,Front Wheeled Walker Comments Mobility Comments MODA to stand from higher surface and may need two person assist to stand from lower surface. Once on her feet PENNIE and heavy use of her arms on the FWW handles. MODA XA 2 to help get back to bed. OT- Balance Assessment Sitting Balance and Reactions Static Sitting Balance Ability Good Dynamic Sitting Balance Ability Good Standing Balance and Reactions Static Standing Balance Ability Fair Dynamic Standing Balance Ability Poor M8 OT- IP Objective Assessments Start: 04/26/24 10:40 Freq: Status: Active Protocol: Document 04/26/24 09:05 [facility] (Rec: 04/26/24 11:45 [facility] [id number]) OT Gross Range of Motion Upper Extremity Range of Motion Assessment Within Functional Limits M9 OT- IP Assessment and Plan Start: 04/26/24 10:40 Freq: Status: Active Protocol: Document 04/27/24 11:25 [facility] (Rec: 04/27/24 11:40 [facility] [id number]) OT Summary Assessment and Plan Potential Rehabilitation Potential Good Analytic Complexity at Evaluation Low Summary OT Impairments Pain,Strength,Balance, Functional Mobility,Grooming, Dressing,Toileting,Bathing, Toilet Transfers,Shower Transfers,Activity Tolerance Progress Towards Goals Progressing Toward Goals Assessment Summary Pt moving better today but still very groggy . Pt needing 1-2 person assist to stand from lower surfaces. Pt looking to go to skilled rehab when medically stable. Goals Grooming Goal Independent Dressing Goal Independent Toileting Goal Independent Bathing Goal Standby Assistance Toilet Transfer Goal Independent Shower Transfer Goal Standby Assistance Days to Meet Goals 10 Frequency of Treatment Other frequency 5x/week Treatment Plan OT Treatment Plan ADL Training,Functional Mobility,Patient/Family Education,Discharge Planning Discharge Recommendations OT Discharge Recommendations SNF Rehab Home Equipment Needs LB dressing equipment Transportation Needs at Discharge Wheelchair/Cabulance
[2024-04-27] MEDS: ACETAMINOPHEN 325 MG TABLET 650 MG PO ×2 (12:56→18:37)
[2024-04-27] MEDS: INSULIN LISPRO 100 UNIT/ML 3ML VIAL SUBCUT ×3 (13:01→21:14)
--- NOTE | 2024-04-27 13:15 | PT.IPTN ---
Current Diagnoses Spondylolisthesis, lumbar region (04/25/24) Spinal stenosis, lumbar region with neurogenic claudication (04/25/24) Arthrodesis status (04/25/24) Surgery Performed Operation Date: 04/25/24 11:30 Actual Procedures p L3-4, L4-5 TLIF with posterior instrumentation, L5-S1 hemilaminectomy-Robot - Danni Gonzalez MD Physical Therapy Treatment Note M2 PT-IP Current Condition Start: 04/26/24 12:13 Freq: NEEDED Status: Active Protocol: Document 04/26/24 09:20 AB (Rec: 04/26/24 12:27 AB [id number]) Physical Therapy Current Condition Current Condition Evaluation Date 04/26/24 Treatment Diagnosis s/p L3-4,L4-5 TLIF; difficulty in walking Onset Date 04/25/24 M3 PT-IP Subjective Start: 04/26/24 12:13 Freq: NEEDED Status: Active Protocol: Document 04/27/24 13:15 AB (Rec: 04/27/24 14:15 AB [id number]) Subjective Physical Therapy Visit Type Type Treatment Note Visit Start Time 13:15 Visit Stop Time 13:46 Number of OXYGEN THERAPIST Visits 0 Physical Therapy Visit Comments Patient Comments needs motivation to participate Therapy Pain Assessment Pain When Pain Assessed At Rest Pain Present Pain Present Pain Reported Location back Scale Used pain scale not stated Pain Management Techniques Apply Cold,Distraction, Modification of Treatment,Re- positioning,Timing of Activity with Medications M4 PT-IP Mobility and Gait Start: 04/26/24 12:13 Freq: NEEDED Status: Active Protocol: Document 04/27/24 13:15 AB (Rec: 04/27/24 14:15 AB [id number]) PT-Bed Mobility Assessment Rolling Type of Rolling Log Rolling Level of Assist Maximal Assistance Supine to Sit Supine to Sit Maximum Assistance Scooting Scooting to Edge of Bed Maximum Assistance PT-Transfer Assessment Sit to and From Stand Sit to and from Stand Maximum Assistance,1 Person Assistance,Use of Upper Extremities Equipment Transfer Assistive Device Gait Belt,Front Wheeled Walker Orthotic/Prosthetic Devices or Brace: No Transfers Transfer Destination Chair Transfer Technique ambulated Transfer Ability Level of Assist Maximum Assistance,1 Person Assistance,Use of Upper Extremities Comments Mobility Comments pt supine in bed and lethargic . initially refusing PT and stated that she is sleepy and tired. educated pt on importance of mobility and agreed to get up. reviewed back precautions and pt needs cues to recall. completed log roll supine to sit max A and max cues. required 2 attempts to complete. pt keep closing her eyes during tx session but continues to c/o back pain . pt needed max A fro scooting to EOB. completed sit to stand max A and max cues. ambulated ~ 3 ft using FWW max A and cues and stated that she needs to sit down. directed pt to the chair. max A for controlled descent to the chair. positioned pt on the chair. ice pack provided call light and table placed within reach. pt immediately went to sleep upon sitting on the chair. Gait Assessment Gait Gait Assistance Required: Maximum Assistance Distance (Feet) 3 Able to Maintain Weight Bearing Status Yes During Gait Assistive Devices Assistive Device Gait Belt,Front Wheeled Walker Orthotic/Prosthetic Devices or Brace: No Gait Deviations General Gait Pattern Ataxic,Decreased Stride Length ,Decreased Feet Clearance,Step -to Gait Factors Limiting Gait Function Factors Limiting Gait Function Decreased Activity Tolerance, Decreased Strength,Difficulty Following Directions,Limited Range of Motion,Pain,Poor Balance,Poor Safety Awareness M5 PT-IP Objective Assessments Start: 04/26/24 12:13 Freq: NEEDED Status: Active Protocol: Document 04/26/24 09:20 AB (Rec: 04/26/24 12:27 AB [id number]) Orientation Orientation/Cognition Level of Alertness Alert Orientation Name,Place,Situation Language Function Ability Hard of Hearing Safety Awareness Decreased Safety Awareness Memory Description Short Term Impaired Gross Range of Motion Lower Extremity ROM Assessment Within Functional Limits Strength Lower Extremity Strength Assessment Right Impaired Hip 3-/5 Knee 3+/5 Coordination Assessment Gross Coordination Gross Coordination WNL Sensation Assessment Sensation Gross Sensation Left LE Impaired Sensation Description Numbness Comments Sensation Comments slight numbness on L toes per pt Muscle Tone Muscle Tone WNL Yes M6 PT-IP Treatment Start: 04/26/24 12:13 Freq: NEEDED Status: Active Protocol: Document 04/27/24 13:15 AB (Rec: 04/27/24 14:15 AB [id number]) Physical Therapy Treatment Education Education Provided Precautions,Safety M7 PT-IP Assessment and Plan Start: 04/26/24 12:13 Freq: NEEDED Status: Active Protocol: Document 04/27/24 13:15 AB (Rec: 04/27/24 14:15 AB [id number]) PT Summary Assessment and Plan Potential Rehabilitation Potential Fair Summary Impairments Pain,ROM,Strength,Balance, Coordination,Sensation,Tone, Cognition,Bed Mobility, Transfers,Gait,Activity Tolerance Progress Towards Goals Slow Progress due to Pain Assessment Summary pt requiring max A with mobility and unable to tolerate much activity due to c/o increase pain but at the same time lethargic. pt needed motivation to participate. pt will benefit from SNF rehab to improve overall strength and function. Goals Bed Mobility Goal Independent Transfer Goal Independent,Front Wheeled Walker Gait Goal Independent,Front Wheel Walker Gait Distance 200 Days to Meet Goals 5 Frequency of Treatment Frequency Of Treatment Twice a Day Treatment Plan Physical Therapy Treatment Plan Bed Mobility Training,Transfer Training,Gait Training, Therapeutic Exercise,Balance Retraining,Post Op Education, Discharge Planning,Hot or Cold Pack,Neuromuscular Re-ed, Coordination Retraining,Manual Therapy Precautions Lumbar Precautions Log Roll,No Twisting,Limit Bending,Lifting Restriction of 10 lbs,Gait Belt above Incisional Area Recommendations To Nursing Amount of Assist Needed 2 Person Assist Discharge Recommendations PT Discharge Recommendations SNF Rehab Transportation Needs at Discharge Wheelchair/Cabulance
--- NOTE | 2024-04-27 15:23 | CM.DPC ---
DCP Cont. Reviewed EMR and team rounds for status updates. [facility] is reviewing for acceptance, they anticipate accepting once pt has had her 3-midnights, likely 04/29 due to pain issues.
[2024-04-27 20:00] VITALS: BP 156/59; PULSE 96; RESP 12; TEMP 36.6; O2SAT 94
[2024-04-27] MEDS: MONTELUKAST 10 MG TABLET PO (20:24)
[2024-04-27] MEDS: SENNOSIDES 8.6 MG TABLET 17.2 MG PO (20:24)
[2024-04-28] MEDS: OXYCODONE IR 10 MG TABLET PO ×5 (00:32→17:30)
[2024-04-28] MEDS: TRAZODONE 50 MG TABLET 100 MG PO ×2 (00:32→23:55)
[2024-04-28] MEDS: DEXAMETHASONE 4 MG/ML VIAL IV ×5 (00:32→23:52)
[2024-04-28] MEDS: ALPRAZolam 0.25 MG TABLET PO ×2 (03:31→20:58)
[2024-04-28] MEDS: PANTOPRAZOLE DR 20 MG TABLET PO (05:24)
--- NOTE | 2024-04-28 07:49 | PM.PNPO.1 ---
Subjective Subjective Interval history: Lidia is POD#3 s/p L3-4, L4-5 Postero-lateral and posterior interbody fusion by Dr. Gonzalez. This morning patient reports she is feeling better than she did yesterday, pain improved w/ addition of methocarbomol and dexamethasone. Still has Christianson, not feeling strong enough to get to beside commode yet, has not worked with PT yet today but is feeling more hopeful she will make better progress today than she has prior days since her pain is now starting to improve. Denies fever, chills, chest pain, SOB, nausea, vomiting. Exam Vital Signs (past 8 hours): Fraction of Inspired Oxygen 28 SaO2/FiO2 Ratio 339 Oxygen Delivery Method Room Air Oxygen Flow Rate 0 Narrative Exam Narrative: Patient lying comfortably in bed during our interview today. No acute distress. AOx3. 5/5 strength with DF, PF, EHL bilaterally. Gross sensation intact throughout bilateral lower extremities. Calves soft and non-tender bilaterally. SCDs are on and functioning. Brisk capillary refill, pulses intact. Post-surgical dressing clean, dry and intact over the lumbar spine without drainage. Objective Labs 04/26/24 05:40 [facility] Medical History (Updated 04/19/24 @ 10:46 by Brooke Wade RN) BMI 39.0-39.9,adult (04/19/24) KATELYN on CPAP HTN (hypertension) Spinal stenosis HLD (hyperlipidemia) Diabetes Anxiety and depression Surgical History (Updated 04/27/24 @ 06:27 by Mabel Liriano PA-C) History of lumbar surgery (2021) History of tonsillectomy H/O bilateral breast reduction surgery History of right hip replacement (2021) H/O cataract extraction H/O: hysterectomy Social History household members: none Smoking Status: Never smoker alcohol intake: current Assessment & Plan Post-op Postoperative Procedures: Procedures Operation Date: 04/25/24 11:30 Actual Procedure Side Surgeon p L3-4, L4-5 TLIF with posterior instrumentation, L5-S1 hemilaminectomy-Robot Danni Gonzalez MD Postoperative plan narrative: 1) Plan to discharge to SNF tomorrow, she has been accepted to transfer to SNF on 04/29/24. If progresses well with PT today, remove Christianson. 2) Continue multimodal pain management. 3) Mechanical DVT prophylaxis. 4) Work w/ PT to improve mobility. Walker for ambulation assistance. Maintain BLT restrictions. 5) Keep dressing intact, clean, dry until 2 week postop appointment. No soaking the incision site in pools or tubs. No topical ointments or creams to the incision site. 6) Follow up at [facility] in 2 weeks for a postop appointment and wound check. All patient's questions were answered, she demonstrates understanding and is in agreement with the plan. Call our office if any questions or concerns arise.
[2024-04-28 08:00] VITALS: BP 135/56; PULSE 93; RESP 14; TEMP 36.8; O2SAT 91
[2024-04-28] MEDS: DOCUSATE 100 MG CAPSULE PO ×2 (09:27→20:56)
[2024-04-28] MEDS: ATORVASTATIN 20 MG TABLET 40 MG PO (09:27)
[2024-04-28] MEDS: methocarbamoL 500 MG TABLET PO ×2 (09:29→17:31)
[2024-04-28] MEDS: ONDANSETRON 4 MG ODT SL ×3 (09:29→17:44)
[2024-04-28 09:30] VITALS: BP 134/61; PULSE 95
[2024-04-28] MEDS: LOSARTAN 50 MG TABLET 100 MG PO (09:30)
[2024-04-28] MEDS: INSULIN LISPRO 100 UNIT/ML 3ML VIAL SUBCUT ×4 (09:32→20:54)
--- NOTE | 2024-04-28 10:30 | PT.IPTN ---
Current Diagnoses Spondylolisthesis, lumbar region (04/25/24) Spinal stenosis, lumbar region with neurogenic claudication (04/25/24) Arthrodesis status (04/25/24) Surgery Performed Operation Date: 04/25/24 11:30 Actual Procedures p L3-4, L4-5 TLIF with posterior instrumentation, L5-S1 hemilaminectomy-Robot - Danni Gonzalez MD Physical Therapy Treatment Note M2 PT-IP Current Condition Start: 04/26/24 12:13 Freq: NEEDED Status: Active Protocol: Document 04/26/24 09:20 AB (Rec: 04/26/24 12:27 AB [id number]) Physical Therapy Current Condition Current Condition Evaluation Date 04/26/24 Treatment Diagnosis s/p L3-4,L4-5 TLIF; difficulty in walking Onset Date 04/25/24 M3 PT-IP Subjective Start: 04/26/24 12:13 Freq: NEEDED Status: Active Protocol: Document 04/28/24 11:30 TS (Rec: 04/28/24 11:37 TS [id number]) Subjective Physical Therapy Visit Type Type Treatment Note Visit Start Time 10:30 Visit Stop Time 11:08 Number of PLUM PACKER Visits 1 Physical Therapy Visit Comments Patient Comments Pt is agreeable to PT. Therapy Pain Assessment Pain When Pain Assessed At Rest Pain Present Pain Present Pain Reported M4 PT-IP Mobility and Gait Start: 04/26/24 12:13 Freq: NEEDED Status: Active Protocol: Document 04/28/24 11:30 TS (Rec: 04/28/24 11:37 TS [id number]) PT-Bed Mobility Assessment Rolling Type of Rolling Log Rolling Level of Assist Moderate Assistance,1 Person Assistance Supine to Sit Supine to Sit Maximum Assistance Scooting Scooting to Edge of Bed Moderate Assistance PT-Transfer Assessment Sit to and From Stand Sit to and from Stand Moderate Assistance,1 Person Assistance,Use of Upper Extremities Equipment Transfer Assistive Device Gait Belt,Front Wheeled Walker Orthotic/Prosthetic Devices or Brace: No Comments Mobility Comments Pt recalls 3/3 spinal precautions prior to mobility. Logroll to L side ModA with cues for sequencing. Supine to sit MaxA for uprighting trunk . STS with FWW ModA. pt ambulates in the room ~50'CGA with FWW. pt wa slef in the chair, all needs met. Gait Assessment Gait Gait Assistance Required: Contact Guard Assist Distance (Feet) 50 Able to Maintain Weight Bearing Status Yes During Gait Assistive Devices Assistive Device Gait Belt,Front Wheeled Walker Orthotic/Prosthetic Devices or Brace: No Gait Deviations General Gait Pattern Ataxic,Decreased Stride Length ,Decreased Feet Clearance,Step -to Gait Factors Limiting Gait Function Factors Limiting Gait Function Decreased Activity Tolerance, Decreased Strength,Difficulty Following Directions,Limited Range of Motion,Pain,Poor Balance,Poor Safety Awareness PT-Balance Assessment Sitting Balance and Reactions Static Sitting Balance Ability Good Dynamic Sitting Balance Ability Good Standing Balance and Reactions Static Standing Balance Ability Fair Dynamic Standing Balance Ability Fair Device Used FWW M5 PT-IP Objective Assessments Start: 04/26/24 12:13 Freq: NEEDED Status: Active Protocol: Document 04/26/24 09:20 AB (Rec: 04/26/24 12:27 AB [id number]) Orientation Orientation/Cognition Level of Alertness Alert Orientation Name,Place,Situation Language Function Ability Hard of Hearing Safety Awareness Decreased Safety Awareness Memory Description Short Term Impaired Gross Range of Motion Lower Extremity ROM Assessment Within Functional Limits Strength Lower Extremity Strength Assessment Right Impaired Hip 3-/5 Knee 3+/5 Coordination Assessment Gross Coordination Gross Coordination WNL Sensation Assessment Sensation Gross Sensation Left LE Impaired Sensation Description Numbness Comments Sensation Comments slight numbness on L toes per pt Muscle Tone Muscle Tone WNL Yes M6 PT-IP Treatment Start: 04/26/24 12:13 Freq: NEEDED Status: Active Protocol: Document 04/28/24 11:30 TS (Rec: 04/28/24 11:37 TS [id number]) Physical Therapy Treatment Education Education Provided Precautions,Safety M7 PT-IP Assessment and Plan Start: 04/26/24 12:13 Freq: NEEDED Status: Active Protocol: Document 04/28/24 11:30 TS (Rec: 04/28/24 11:37 TS [id number]) PT Summary Assessment and Plan Potential Rehabilitation Potential Fair Summary Impairments Pain,ROM,Strength,Balance, Coordination,Sensation,Tone, Cognition,Bed Mobility, Transfers,Gait,Activity Tolerance Progress Towards Goals Slow Progress due to Pain Assessment Summary Pt is making some progress but continues to be slow. She recalled 3/3 spinal precautions this session. She continues to be ModA for most mobility. Bed mobility continues to be difficult for pt. PT is recommending SNF at this time. Goals Bed Mobility Goal Independent Transfer Goal Independent,Front Wheeled Walker Gait Goal Independent,Front Wheel Walker Gait Distance 200 Days to Meet Goals 5 Frequency of Treatment Frequency Of Treatment Twice a Day Treatment Plan Physical Therapy Treatment Plan Bed Mobility Training,Transfer Training,Gait Training, Therapeutic Exercise,Balance Retraining,Post Op Education, Discharge Planning,Hot or Cold Pack,Neuromuscular Re-ed, Coordination Retraining,Manual Therapy Precautions Lumbar Precautions Log Roll,No Twisting,Limit Bending,Lifting Restriction of 10 lbs,Gait Belt above Incisional Area Recommendations To Nursing Amount of Assist Needed 1 Person Assist Discharge Recommendations PT Discharge Recommendations SNF Rehab Transportation Needs at Discharge Wheelchair/Cabulance
--- NOTE | 2024-04-28 11:48 | CM.DPC ---
DCP Cont. Reviewed EMR and team rounds for status updates. [facility] [place] [facility] Updated pt at bedside. Will call in the am for transport time.
[2024-04-28] MEDS: ACETAMINOPHEN 325 MG TABLET 650 MG PO ×2 (13:24→20:58)
--- NOTE | 2024-04-28 13:30 | PT.IPTN ---
Current Diagnoses Spondylolisthesis, lumbar region (04/25/24) Spinal stenosis, lumbar region with neurogenic claudication (04/25/24) Arthrodesis status (04/25/24) Surgery Performed Operation Date: 04/25/24 11:30 Actual Procedures p L3-4, L4-5 TLIF with posterior instrumentation, L5-S1 hemilaminectomy-Robot - Danni Gonzalez MD Physical Therapy Treatment Note M2 PT-IP Current Condition Start: 04/26/24 12:13 Freq: NEEDED Status: Active Protocol: Document 04/26/24 09:20 AB (Rec: 04/26/24 12:27 AB [id number]) Physical Therapy Current Condition Current Condition Evaluation Date 04/26/24 Treatment Diagnosis s/p L3-4,L4-5 TLIF; difficulty in walking Onset Date 04/25/24 M3 PT-IP Subjective Start: 04/26/24 12:13 Freq: NEEDED Status: Active Protocol: Document 04/28/24 14:27 TS (Rec: 04/28/24 14:35 TS [id number]) Subjective Physical Therapy Visit Type Type Treatment Note Visit Start Time 13:30 Visit Stop Time 14:00 Number of BOOKKEEPING MACHINE MECHANIC Visits 2 Physical Therapy Visit Comments Patient Comments Pt found resting in chair, OT in room, pt is agreeable to PT . Therapy Pain Assessment Pain When Pain Assessed At Rest Pain Present Pain Present Pain Reported M4 PT-IP Mobility and Gait Start: 04/26/24 12:13 Freq: NEEDED Status: Active Protocol: Document 04/28/24 14:27 TS (Rec: 04/28/24 14:35 TS [id number]) PT-Bed Mobility Assessment Rolling Type of Rolling Log Rolling Level of Assist Moderate Assistance,1 Person Assistance Sit to Supine Sit to Supine Maximum Assistance,1 Person Assistance PT-Transfer Assessment Sit to and From Stand Sit to and from Stand Moderate Assistance,1 Person Assistance Equipment Transfer Assistive Device Gait Belt,Front Wheeled Walker Orthotic/Prosthetic Devices or Brace: No Comments Mobility Comments STS with FWW ModA, pt requires cues for BUE's pushing from arms of the chair. She ambulates in the hallway ~100' CGA with step thru gait, pt requests to use toilet. STS from the toilet ModA. Sit to supine into bed MaxA with max cues for sequencing. Pt was left in bed, all needs met. Gait Assessment Gait Gait Assistance Required: Contact Guard Assist Distance (Feet) 100 Able to Maintain Weight Bearing Status Yes During Gait Assistive Devices Assistive Device Gait Belt,Front Wheeled Walker Gait Deviations General Gait Pattern Ataxic,Decreased Stride Length ,Decreased Feet Clearance,Step -to Gait Factors Limiting Gait Function Factors Limiting Gait Function Decreased Activity Tolerance, Decreased Strength,Difficulty Following Directions,Limited Range of Motion,Pain,Poor Balance,Poor Safety Awareness PT-Balance Assessment Sitting Balance and Reactions Static Sitting Balance Ability Good Dynamic Sitting Balance Ability Good Standing Balance and Reactions Static Standing Balance Ability Fair Dynamic Standing Balance Ability Fair Device Used FWW M5 PT-IP Objective Assessments Start: 04/26/24 12:13 Freq: NEEDED Status: Active Protocol: Document 04/26/24 09:20 AB (Rec: 04/26/24 12:27 AB [id number]) Orientation Orientation/Cognition Level of Alertness Alert Orientation Name,Place,Situation Language Function Ability Hard of Hearing Safety Awareness Decreased Safety Awareness Memory Description Short Term Impaired Gross Range of Motion Lower Extremity ROM Assessment Within Functional Limits Strength Lower Extremity Strength Assessment Right Impaired Hip 3-/5 Knee 3+/5 Coordination Assessment Gross Coordination Gross Coordination WNL Sensation Assessment Sensation Gross Sensation Left LE Impaired Sensation Description Numbness Comments Sensation Comments slight numbness on L toes per pt Muscle Tone Muscle Tone WNL Yes M6 PT-IP Treatment Start: 04/26/24 12:13 Freq: NEEDED Status: Active Protocol: Document 04/28/24 14:27 TS (Rec: 04/28/24 14:35 TS [id number]) Physical Therapy Treatment Education Education Provided Precautions,Safety M7 PT-IP Assessment and Plan Start: 04/26/24 12:13 Freq: NEEDED Status: Active Protocol: Document 04/28/24 14:27 TS (Rec: 04/28/24 14:35 TS [id number]) PT Summary Assessment and Plan Potential Rehabilitation Potential Fair Summary Impairments Pain,ROM,Strength,Balance, Coordination,Sensation,Tone, Cognition,Bed Mobility, Transfers,Gait,Activity Tolerance Progress Towards Goals Progressing Toward Goals Assessment Summary Lidia is making progress with her mobility. She continues to require MaxA for bed mobility with cues. She did progress her gait to ~100' SBA with step thru gait and use of FWW. PT is recommending SNF at this time. Goals Bed Mobility Goal Independent Transfer Goal Independent,Front Wheeled Walker Gait Goal Independent,Front Wheel Walker Gait Distance 200 Days to Meet Goals 5 Frequency of Treatment Frequency Of Treatment Twice a Day Treatment Plan Physical Therapy Treatment Plan Bed Mobility Training,Transfer Training,Gait Training, Therapeutic Exercise,Balance Retraining,Post Op Education, Discharge Planning,Hot or Cold Pack,Neuromuscular Re-ed, Coordination Retraining,Manual Therapy Precautions Lumbar Precautions Log Roll,No Twisting,Limit Bending,Lifting Restriction of 10 lbs,Gait Belt above Incisional Area Recommendations To Nursing Amount of Assist Needed 1 Person Assist Discharge Recommendations PT Discharge Recommendations SNF Rehab Transportation Needs at Discharge Wheelchair/Cabulance
--- NOTE | 2024-04-28 13:32 | PC.NURSE ---
Addendum entered by Emily Maya R.N. 04/28/24 20:33: 1930 Report given to nightshift RN. Plan of care discussed. 1500 Puriwick applied, patient voiding yellow urine. Addendum entered by Emily Maya R.N. 04/28/24 13:35: 1335 Dressing to lower back intact, clean, dry and intact. Original Note: 729 Report received from nightshijm RN. Plan of care discussed. Call light within reach and bed in lowest position. Patient on BiPAP at this time, resting. 0800 Patient AAO x's 3. Able to ALVAREZ. 1330 PT/OT at the bedside. Pain medication administered. Christianson removed, patient tolerated procedure well.
--- NOTE | 2024-04-28 13:39 | OT.IP.TRT ---
Current Diagnoses Spondylolisthesis, lumbar region (04/25/24) Spinal stenosis, lumbar region with neurogenic claudication (04/25/24) Arthrodesis status (04/25/24) Surgery Performed Operation Date: 04/25/24 11:30 Actual Procedures p L3-4, L4-5 TLIF with posterior instrumentation, L5-S1 hemilaminectomy-Robot - Danni Gonzalez MD Occupational Therapy Treatment Note M2 OT-IP Current Condition Start: 04/26/24 10:40 Freq: Status: Active Protocol: Document 04/26/24 09:05 [facility] (Rec: 04/26/24 11:45 [facility] [id number]) Occupational Therapy Current Condition Current Condition Evaluation Date 04/26/24 Treatment Diagnosis S/P L3-4, L4-5 TLIF Diagnosis Onset Date 04/25/24 Post Operative Precautions Lumbar Precautions Log Roll,No Twisting,Limit Bending,Lifting Restriction of 10 lbs,Gait Belt above Incisional Area M3 OT- IP Subjective and Pain Start: 04/26/24 10:40 Freq: Status: Active Protocol: Document 04/28/24 13:40 [facility] (Rec: 04/28/24 13:48 [facility] [id number]) OT- Subjective Occupational Therapy Visit Type Type Treatment Note Visit Start Time 13:15 Visit Stop Time 13:39 Occupational Therapy Visit Comments Patient Comments Pt agreed to get up to put on a brief. Patient/Caregiver Goals TO get better. OT Pain Assessment Pain When Pain Assessed At Rest Pain Present Pain Present Pain Reported Location back Pain Behaviors Facial Grimacing M4 OT- IP ADL's Start: 04/26/24 10:40 Freq: Status: Active Protocol: Document 04/28/24 13:40 [facility] (Rec: 04/28/24 13:48 [facility] [id number]) OT [id number] General Evaluation Self-Feeding Ability Independent Comments OT Self-Feeding Comments Pt wanting to keep her lunch and requested to have an Ensure. Nursing okay her request. OT ADL-Grooming Comments OT Grooming Comments Not performed. OT ADL-Oral Care Comments Oral Care Comments Reminded pt if standing to brush her teeth to spit into a cup or hinge at her hips. Pt states to just spit into a wash cloth. OT ADL-Toileting General Evaluation Toileting Ability Moderate Assistance Comments OT Toileting Comments Pt will need assist for completeness. Pt has a bidet to use at home. Able to talk to pt and nursing and all agreed best for pt to use the BSC /toilet when awake and Purewick if necessary at night as pt is mobilizing much better today. Pt able to practice use of spring coiling machine setter to tresa brief over her feet. Educated to tresa the weaker leg in first. OT ADL-Bathing Comments OT Bathing Comments Not performed. M5 OT- IP IADL's Start: 04/26/24 10:40 Freq: Status: Active Protocol: Document 04/26/24 09:05 [facility] (Rec: 04/26/24 11:45 [facility] [id number]) OT-Instrumental Activities of Daily Living Deficits IADL Deficits Identified Deficits Home Safety Awareness Awareness of Need for Assistance at Home Good Awareness Ability to Problem Solve Emergency Able to Problem Solve Situations Medication Management Medication Management No Deficits Identified Money Management Money Management No Deficits Identified Meal Preparation Meal Preparation Comments Pt will need assist. Flume Maker Flume Maker Caregiver Provides Assist M6 OT- IP Functional Cognition Start: 04/26/24 10:40 Freq: Status: Active Protocol: Document 04/28/24 13:40 [facility] (Rec: 04/28/24 13:48 [facility] [id number]) Cognitive Factors Limiting Selfcare Function Cognitive Ability Level of Alertness Alert Cognitive Comments Cognitive Assessment Comments Pt thinking much better , but still will benefit from practicing incorporating her back precautions for ADL and mobility needs. Able to demonstrate motions and pt able to identify incorporation of her back precautions 80% of the time. M7 OT- IP Mobility and Balance Start: 04/26/24 10:40 Freq: Status: Active Protocol: Document 04/28/24 13:40 [facility] (Rec: 04/28/24 13:48 [facility] [id number]) OT-Transfer Assessment Sit to and From Stand Sit to and from Stand Moderate Assistance,1 Person Assistance Comments Mobility Comments Pt still tends to buckle when coming to stand. Educated pt not to hesitate when coming to stand . OT- Balance Assessment Sitting Balance and Reactions Static Sitting Balance Ability Normal Dynamic Sitting Balance Ability Good Standing Balance and Reactions Static Standing Balance Ability Fair Dynamic Standing Balance Ability Fair M8 OT- IP Objective Assessments Start: 04/26/24 10:40 Freq: Status: Active Protocol: Document 04/26/24 09:05 [facility] (Rec: 04/26/24 11:45 [facility] [id number]) OT Gross Range of Motion Upper Extremity Range of Motion Assessment Within Functional Limits M9 OT- IP Assessment and Plan Start: 04/26/24 10:40 Freq: Status: Active Protocol: Document 04/28/24 13:40 [facility] (Rec: 04/28/24 13:48 [facility] [id number]) OT Summary Assessment and Plan Potential Rehabilitation Potential Good Analytic Complexity at Evaluation Low Summary OT Impairments Pain,Strength,Balance, Functional Mobility,Grooming, Dressing,Toileting,Bathing, Toilet Transfers,Shower Transfers,Activity Tolerance Progress Towards Goals Progressing Toward Goals Assessment Summary Pt doing much better with her mobility and much more alert at this time. Pt to go to skilled rehab when medically stable. Goals Grooming Goal Independent Dressing Goal Independent Toileting Goal Independent Bathing Goal Standby Assistance Toilet Transfer Goal Independent Shower Transfer Goal Standby Assistance Days to Meet Goals 10 Frequency of Treatment Other frequency 5x/week Treatment Plan OT Treatment Plan ADL Training,Functional Mobility,Patient/Family Education,Discharge Planning Discharge Recommendations OT Discharge Recommendations SNF Rehab Home Equipment Needs LB dressing equipment Transportation Needs at Discharge Wheelchair/Cabulance
[2024-04-28 20:00] VITALS: BP 130/64; PULSE 87; RESP 20; TEMP 36.2; O2SAT 97
[2024-04-28] MEDS: SENNOSIDES 8.6 MG TABLET 17.2 MG PO (20:57)
[2024-04-28] MEDS: MONTELUKAST 10 MG TABLET PO (20:57)
[2024-04-28] MEDS: OXYCODONE IR 5 MG TABLET PO (20:57)
--- NOTE | 2024-04-28 22:26 | PC.NURSE ---
Educated patient on importance of getting out of bed to urinate instead of using the purewick. Patient stated it will be annoying, i rather just stay in bed.
[2024-04-29] MEDS: OXYCODONE IR 5 MG TABLET PO (03:31)
[2024-04-29] MEDS: ALPRAZolam 0.25 MG TABLET PO ×3 (03:32→14:30)
[2024-04-29] MEDS: DEXAMETHASONE 4 MG/ML VIAL IV (05:56)
[2024-04-29] MEDS: PANTOPRAZOLE DR 20 MG TABLET PO (05:56)
[2024-04-29] MEDS: OXYCODONE IR 10 MG TABLET PO ×3 (05:56→13:27)
[2024-04-29] MEDS: ONDANSETRON 4 MG/2 ML INJ IV (06:03)
[2024-04-29 08:00] VITALS: BP 160/57; PULSE 83; RESP 12; TEMP 36.5; O2SAT 94
--- NOTE | 2024-04-29 08:19 | PM.DS.1 ---
History of Present Illness History of Present Illness Date Patient Seen: 04/29/24 Time Patient Seen: 07:35 Chief complaint: Translam Intrbody Fus./Laminotomy -Robot Narrative: Patient has been having chronic back pain and worsening lumbar radiculopathy. Patient was found to have significant lumbar scoliosis foraminal stenosis with correlating symptoms at L3-4 L4-5 level. Patient failed multiple conservative management with worsening pain weakness and numbness in her lower extremity. Patient has been having difficulty performing activity of daily living. After discussing risks benefits of treatment options, patient elected proceed with surgery. Discharge Providers Provider Date of admission: 04/25/24 09:40 Discharge Date: 04/29/24 Consults: 04/25/24 06:37 Consult to Discharge Planning Routine Comment: Needs SNF 04/25/24 16:13 Consult to Occupational Therapy Evaluate & Treat Comment: Physician Instructions: Evaluate and treat Consult to Physical Therapy Evaluate & Treat Comment: Physician Instructions: Evaluate and Treat Discharge provider: Tristan Erickson PA-C Summary Hospital Course Discharge Diagnosis: 1. L3-4, L4-5 spinal stenosis with radiculopathy 2. Lumbar scoliosis Hospital Course: Multimodal pain control. Ambulating with physical therapy. Status at Discharge Cognitive/behavioral status at discharge: oriented Functional status at discharge: uses cane/walker Overall status at discharge: patient is progressing back to baseline Time Spent with Patient Time spent: Less than 30 minutes Exam Vital Signs (past 8 hours): Fraction of Inspired Oxygen 28 SaO2/FiO2 Ratio 339 Oxygen Delivery Method Room Air Oxygen Flow Rate 0 Narrative Exam Narrative: Patient has had difficulty with pain control and sleeping while in the hospital. She still has persistent pain down her right leg after surgery. No increase in pain or numbness and tingling in her lower extremities bilaterally. She has been able to work with physical therapy. No fever chills nausea or vomiting today. Patient is able to dorsiflex and plantar flex at the ankles against resistance bilaterally. Sensation grossly intact to light touch to lower extremities. Objective Labs 04/26/24 05:40 [facility] Medical History (Updated 04/19/24 @ 10:46 by Brooke Wade RN) BMI 39.0-39.9,adult (04/19/24) KATELYN on CPAP HTN (hypertension) Spinal stenosis HLD (hyperlipidemia) Diabetes Anxiety and depression Surgical History (Updated 04/27/24 @ 06:27 by Mabel Liriano PA-C) History of lumbar surgery (2021) History of tonsillectomy H/O bilateral breast reduction surgery History of right hip replacement (2021) H/O cataract extraction H/O: hysterectomy Social History household members: none Smoking Status: Never smoker alcohol intake: current Discharge Assessment & Plan Assessment and Plan Assessment: Status post TLIF Plan of Treatment: Discharge to SNF. Baseline pain control with acetaminophen 1000 mg q.6 hours PRN. Patient is prescribed oxycodone 5 mg q.4 hours for breakthrough pain in methocarbamol 500 mg q.i.d. prn for muscle spasms. Ambulate with physical therapy with assistive devices. No bending twisting or lifting more than 10 lb for the next 6 weeks. Keep dressing clean and dry next 2 weeks. Change if dressing becomes dirty or disrupted. Follow up in 2 weeks in clinic for wound check. Discharge Plan Discharge Plan Patient Disposition: [facility] Transfer to: [facility] Discharge orders & Medications Prescriptions: New methocarbamol 500 mg Tablet 500 mg PO QID PRN (Reason: Muscle Spasm) Qty: 60 0RF oxycodone 5 mg Tablet 5 mg PO Q4H PRN (Reason: Pain, Moderate (4-6)) Qty: 40 0RF Continued atorvastatin 40 mg Tablet 40 mg PO DAILY acetaminophen [Tylenol Extra Strength] 500 mg Tablet 1,000 mg PO Q6H PRN (Reason: Pain, Moderate) alprazolam 0.25 mg Tablet 0.25 mg PO TID PRN (Reason: anxiety/pain) trazodone 100 mg Tablet 100 - 200 mg PO BEDTIME pseudoephedrine HCl [Sudafed] 30 mg Tablet 60 mg PO BID montelukast 10 mg Tablet 10 mg PO QPM losartan 100 mg Tablet 100 mg PO DAILY omeprazole 20 mg Tablet,Delayed Release (Dr/Ec) 20 mg PO DAILY Ozempic 1 mg/dose (4 mg/3 mL) Pen Injector 1 mg SUBCUT QWEEK Rx Instructions: Hold for surgery after dose on 04/15/24. Discontinued tramadol 50 mg Tablet 50 mg PO BID PRN (Reason: Pain, Moderate) naproxen sodium 220 mg Capsule 220 mg PO Q8H Diet/Activity/Treatments Diet: Diet as Tolerated Activity: No deep bending or twisting at the waist. No lifting more than 10 pounds. Skin/Wound/Dressing Care Report to your healthcare provider any signs of infection, such as:: chills, fever, night sweats, unusual drainage and unusual redness Dressing: May shower. Keep dressing as dry as possible. If dressing becomes wet or dirty, may remove and replace with clean, dry gauze. No bathing or otherwise soaking incisions. Do not apply any creams, lotions, or ointments to incisions. Visit Report/Discharge Packet Instructions: DI for Prescription Opioid Use, DI for Transforaminal Lumbar Interbody Fusion Stand Alone Forms: Patient Portal/API, Surgery Discharge
[2024-04-29] MEDS: ATORVASTATIN 20 MG TABLET 40 MG PO (08:40)
[2024-04-29] MEDS: DOCUSATE 100 MG CAPSULE PO (08:40)
[2024-04-29] MEDS: LOSARTAN 50 MG TABLET 100 MG PO (08:40)
[2024-04-29] MEDS: INSULIN LISPRO 100 UNIT/ML 3ML VIAL SUBCUT ×2 (08:44→12:07)
--- NOTE | 2024-04-29 09:16 | PT.IPTN ---
Current Diagnoses Spondylolisthesis, lumbar region (04/25/24) Spinal stenosis, lumbar region with neurogenic claudication (04/25/24) Arthrodesis status (04/25/24) Surgery Performed Operation Date: 04/25/24 11:30 Actual Procedures p L3-4, L4-5 TLIF with posterior instrumentation, L5-S1 hemilaminectomy-Robot - Danni Gonzalez MD Physical Therapy Treatment Note M2 PT-IP Current Condition Start: 04/26/24 12:13 Freq: NEEDED Status: Active Protocol: Document 04/26/24 09:20 AB (Rec: 04/26/24 12:27 AB [id number]) Physical Therapy Current Condition Current Condition Evaluation Date 04/26/24 Treatment Diagnosis s/p L3-4,L4-5 TLIF; difficulty in walking Onset Date 04/25/24 M3 PT-IP Subjective Start: 04/26/24 12:13 Freq: NEEDED Status: Active Protocol: Document 04/29/24 10:25 TS (Rec: 04/29/24 10:32 TS [id number]) Subjective Physical Therapy Visit Type Type Treatment Note Visit Start Time 09:16 Visit Stop Time 09:31 Number of WAGON DRILL OPERATOR Visits 3 Physical Therapy Visit Comments Patient Comments Pt found on commode, she is agreeable to PT. Therapy Pain Assessment Pain When Pain Assessed At Rest Pain Present Pain Present Pain Reported M4 PT-IP Mobility and Gait Start: 04/26/24 12:13 Freq: NEEDED Status: Active Protocol: Document 04/29/24 10:25 TS (Rec: 04/29/24 10:32 TS [id number]) PT-Transfer Assessment Sit to and From Stand Sit to and from Stand Minimal Assistance,1 Person Assistance Equipment Transfer Assistive Device Gait Belt,Front Wheeled Walker Orthotic/Prosthetic Devices or Brace: No Comments Mobility Comments STS with FWW from commode Abril . Pt ambulates ~175'SBA/CGA with FWW. Pt ambualtes back to the room, requests to use commode again, nursing notified. Gait Assessment Gait Gait Assistance Required: Contact Guard Assist Distance (Feet) 175 Able to Maintain Weight Bearing Status Yes During Gait Assistive Devices Assistive Device Gait Belt,Front Wheeled Walker Orthotic/Prosthetic Devices or Brace: No Gait Deviations General Gait Pattern Ataxic,Decreased Stride Length ,Decreased Feet Clearance,Step -to Gait Factors Limiting Gait Function Factors Limiting Gait Function Decreased Activity Tolerance, Decreased Strength,Difficulty Following Directions,Limited Range of Motion,Pain,Poor Balance,Poor Safety Awareness PT-Balance Assessment Sitting Balance and Reactions Static Sitting Balance Ability Good Dynamic Sitting Balance Ability Good Standing Balance and Reactions Static Standing Balance Ability Fair Dynamic Standing Balance Ability Fair Device Used FWW M5 PT-IP Objective Assessments Start: 04/26/24 12:13 Freq: NEEDED Status: Active Protocol: Document 04/26/24 09:20 AB (Rec: 04/26/24 12:27 AB [id number]) Orientation Orientation/Cognition Level of Alertness Alert Orientation Name,Place,Situation Language Function Ability Hard of Hearing Safety Awareness Decreased Safety Awareness Memory Description Short Term Impaired Gross Range of Motion Lower Extremity ROM Assessment Within Functional Limits Strength Lower Extremity Strength Assessment Right Impaired Hip 3-/5 Knee 3+/5 Coordination Assessment Gross Coordination Gross Coordination WNL Sensation Assessment Sensation Gross Sensation Left LE Impaired Sensation Description Numbness Comments Sensation Comments slight numbness on L toes per pt Muscle Tone Muscle Tone WNL Yes M6 PT-IP Treatment Start: 04/26/24 12:13 Freq: NEEDED Status: Active Protocol: Document 04/29/24 10:25 TS (Rec: 04/29/24 10:32 TS [id number]) Physical Therapy Treatment Education Education Provided Precautions,Safety M7 PT-IP Assessment and Plan Start: 04/26/24 12:13 Freq: NEEDED Status: Active Protocol: Document 04/29/24 10:25 TS (Rec: 04/29/24 10:32 TS [id number]) PT Summary Assessment and Plan Potential Rehabilitation Potential Fair Summary Impairments Pain,ROM,Strength,Balance, Coordination,Sensation,Tone, Cognition,Bed Mobility, Transfers,Gait,Activity Tolerance Progress Towards Goals Progressing Toward Goals Assessment Summary Lidia is making progress with her mobility. She requires decreased assist for STS and progressed her gait to ~175' with FWW. PT continues to recommend SNF. Goals Bed Mobility Goal Independent Transfer Goal Independent,Front Wheeled Walker Gait Goal Independent,Front Wheel Walker Gait Distance 200 Days to Meet Goals 5 Frequency of Treatment Frequency Of Treatment Twice a Day Treatment Plan Physical Therapy Treatment Plan Bed Mobility Training,Transfer Training,Gait Training, Therapeutic Exercise,Balance Retraining,Post Op Education, Discharge Planning,Hot or Cold Pack,Neuromuscular Re-ed, Coordination Retraining,Manual Therapy Precautions Lumbar Precautions Log Roll,No Twisting,Limit Bending,Lifting Restriction of 10 lbs,Gait Belt above Incisional Area Recommendations To Nursing Amount of Assist Needed 1 Person Assist Discharge Recommendations PT Discharge Recommendations SNF Rehab Transportation Needs at Discharge Wheelchair/Cabulance
[2024-04-29] MEDS: ACETAMINOPHEN 325 MG TABLET 650 MG PO (10:11)
--- NOTE | 2024-04-29 11:24 | CM.DPNOTE ---
DCP Continued: Reviewed EMR and team rounds for pt?s medical status. Pt accepted at [facility] today, 04/29 at approximately 1330. [facility] arranged transport with [facility] at [phone]. Signed PASRR, signed med list and prescriptions were sent electronically to accepting SNF. [facility] requesting clarification about pt Ozempic rx as they will not able to fill it. Pt options are to bring home medication or hold until she goes back home. DCP to follow up with pt regarding this. Unit GLUE LINE OPERATOR, Coordinator, Pt RN and Ortho PA notified of discharge plans. Plan: Pt to transfer to [facility] via [facility] at 1330 for SNF Rehab. CM Team will continue to follow for coordination of discharge plans. CASH Valencia
--- NOTE | 2024-04-29 11:56 | PC.NURSE ---
Patient is discharging to [facility] today around 1400. She has been givn oxycodone for pain and xanax for anxiety. She is doing well. Resting in chair now. Dressing will be changed prior to patient going home.
[2024-04-29] MEDS: ONDANSETRON 4 MG ODT SL (12:15)
== END 2024-04-29 16:05 | DRG 428 ==
PROVIDERS: Admitting Provider Orthopaedic Surgery Orthopaedic Surgery of the Spine; Referring Provider Orthopaedic Surgery Orthopaedic Surgery of the Spine; Visit Provider Orthopaedic Surgery Orthopaedic Surgery of the Spine
PROC: 0SG10AJ Fusion of 2 or more Lumbar Vertebral Joints with Interbody Fusion Device, Posterior Approach, Anterior Column, Open Approach (ICD-10-PCS; principal; 2024-04-25 11:30)
DX: M48.061 Spinal stenosis, lumbar region without neurogenic claudication (principal); M43.16 Spondylolisthesis, lumbar region; M54.16 Radiculopathy, lumbar region; M41.86 Other forms of scoliosis, lumbar region; M96.1 Postlaminectomy syndrome, not elsewhere classified; I10 Essential (primary) hypertension; E78.5 Hyperlipidemia, unspecified; F41.9 Anxiety disorder, unspecified; F32.A Depression, unspecified; K21.9 Gastro-esophageal reflux disease without esophagitis; E11.9 Type 2 diabetes mellitus without complications; Z79.85 Long-term (current) use of injectable non-insulin antidiabetic drugs; Z98.890 Other specified postprocedural states
CPT/HCPCS: 36415; 72100; 76000; 82962; 85014; 85018; 94762; 97116; 97162; 97165; 97530; 97535; C1713; C9290; J0171; J0690; J1100; J1171; J2250; J2405; J2704; J3410